=== PATIENT | male | born 1935 | race Caucasian/White ===

== ENCOUNTER 2016-09-18 16:14 | Emergency (ER) | payer MEDICARE ==
[~2016-09-18] VITALS: Ht 180.3 cm; Wt 118.8 kg
[2016-09-18] MEDS ORDERED: LIDOCAINE 2% 20 ML VIAL. IJ ONE (17:30)
[2016-09-18 17:39] VITALS: BP 162/77
--- NOTE | 2016-09-18 17:58 | RAD ---
Indication: Dizziness and fall with laceration above the right eye. Axial imaging through the brain was performed without contrast. One or more of the following individualized dose reduction techniques were utilized for this examination: 1. Automated exposure control 2. Adjustment of the mA and/or kV according to patient size 3. Use of iterative reconstruction technique The ventricles and sulci are appropriate for the patient's age. No sulcal effacement, midline shift or hemorrhage is detected. The cisterns are patent. The visualized paranasal sinuses are clear. There is soft tissue swelling in the right frontal scalp and right periorbital region. No fractures are seen. IMPRESSION: 1. Senescent changes. No acute intracranial process is identified. 2. Right frontal and right periorbital soft tissue swelling. No fractures are seen. Electronically signed by: Silviano Benoit MD (09/18/2016 5:55 PM) [facility]
--- NOTE | 2016-09-18 18:27 | PHYS DOC ---
Past Medical History Past Medical History: Diabetes-Type II Past Surgical History: Other Additional Past Surgical Histo: shoulder, knee, Alcohol Use: None Drug Use: None Adult General Chief Complaint Chief Complaint: fall HPI HPI Patient is a 80 year old male brought to the ED by his son after a fall in his garage. The patient looked up to hang up a shovel and he had a dizzy spell and fell onto the garage floor. He has a "knot on his head" and has an injury to his right ring finger. He denies other injury. He was able to get himself up and ambulate into the house after the fall. He has no complaints of pain at this time. He denies headache, denies vomiting, states his injured finger does not hurt. Patient's son is here with him and is supportive. Review of Systems Review of Systems Respiratory: Denies shortness of breath [] Cardiovascular: Denies chest pain GI: Denies nausea or vomiting Musculoskeletal: Denies back pain or joint pain , does no deformity to right finger Neurologic: Denies headache, focal weakness or sensory changes [] Current Medications Current Medications Current Medications Medications (Trade) Dose Ordered Sig/Brandie Start Time Stop Time Status Last Admin Dose Admin Lidocaine HCl 20 ml 1X ONCE 09/18/16 17:30 09/18/16 17:33 DC 09/18/16 17:39 20 ML Allergies Allergies Allergies Coded Allergies Type Severity Reaction Last Updated Verified No Known Drug Allergies 09/18/16 No Physical Exam Physical Exam Constitutional: Well developed, well nourished, no acute distress, non-toxic appearance. Alert, mentating normally HENT: Normocephalic, hematoma with small abrasion over the right eyebrow, no underlying bony tenderness or deformity, bilateral external ears normal, oropharynx moist, no oral exudates, nose normal. [] Eyes: conjunctiva normal, no discharge. [] Neck: Normal range of motion, no tenderness, supple, no stridor. Spine is entirely benign. Cardiovascular:Heart rate regular rhythm, no murmur [] Lungs & Thorax: Bilateral breath sounds clear to auscultation [] Skin: Warm, dry, no erythema, no rash. [] Back: No tenderness, no CVA tenderness. [] Extremities: Right upper extremity: The right fourth finger has a deformity consistent with fracture or dislocation. Remainder of right hand without deformity, nontender. Remainder of right upper extremity unremarkable. Left upper extremity and bilateral lower extremities are without tenderness or deformity. Full range of motion. Neurologic: Alert and oriented X 3, normal motor function, normal sensory function, no focal deficits noted. [] Current Patient Data Vital Signs Vital Signs Date Time Temp Pulse Resp B/P (MAP) Pulse Ox O2 Delivery O2 Flow Rate FiO2 09/18/16 17:39 81 18 162/77 (105) 96 Room Air EKG EKG [] Radiology/Procedures Radiology/Procedures CT Scan of the head read by the radiologist. No acute findings. [] Preprocedure three-view x-ray of the right ring finger read by me. There is a dislocation at the PIP joint. No fracture is evident. Postprocedure post reduction three-view x-ray of the right ring finger read by me. Successful reduction. There is a ramón of bone on the dorsal aspect. No large fracture noted. Procedure: Reduction of right ring finger PIP dislocation Digital block was placed with lidocaine 2% plain, good result With gentle traction and manipulation, the PIP joint dislocation was reduced easily. Patient tolerated procedure well. After reduction, the patient is able to extend his finger against resistance and is able to fully flex his finger, however, the swelling present prevents full examination of flexor and extensor tendon intactness. After postreduction x-ray was confirmed, the finger was cecil taped to the middle finger. Course & Med Decision Making Course & Med Decision Making Pertinent Labs and Imaging studies reviewed. (See chart for details) 80-year-old male with looking up and had a dizzy spell and fell. It was not a syncopal episode. He has a hematoma to his forehead/eyebrow area but CT scan is negative. He is not on any blood thinners. He had a dislocation of his right ring finger which was reduced and cecil taped. I emphasized to the patient and his son the importance of follow-up to reassess tendon. The patient's finger is too swollen to fully assess range of motion at this time. They understand that importance. See instructions for plan. [] Dragon Disclaimer Dragon Disclaimer This electronic medical record was generated, in whole or in part, using a voice recognition dictation system. Departure Departure Impression: Primary Impression: Fall from standing Additional Impressions: Closed head injury Dislocation of proximal interphalangeal joint of right ring finger Disposition: HOME, SELF-CARE Condition: IMPROVED Referrals: VIOLET MONZON Jr, MD (PCP) RENATE DAVIS MD Patient Instructions: Cecil Taping, Finger Dislocation, [id number], Head Injury, Adult, [id number] Additional Instructions: Your CT scan was normal, but since you had a head injury, have someone keep an eye on you for a couple of days. If you have a severe headache, not walking or acting right, return. Tape your finger to the next finger to use it as a splint. Put some gauze or cotton between to protect the skin. Follow-up in about one week with an technology specialist for recheck of your finger. It's very important to follow-up because a small ramón of bone came off and that may mean a tendon was damaged. As the anesthetic wears off, you may need to take some ibuprofen for pain. Also elevate to help with pain and throbbing. Problem Qualifiers NIRANJAN BURGESS MD Sep 18, 2016 18:27
--- NOTE | 2016-09-19 07:50 | RAD ---
Indication injury. Pain. AP oblique and lateral views of the right hand were obtained. There is dislocation at the PIP joint of the ring finger. Degenerative changes are seen at the wrist. There is chondrocalcinosis. IMPRESSION: Dislocation at the PIP joint of the ring finger
--- NOTE | 2016-09-19 07:53 | RAD ---
Indication post reduction. AP oblique and lateral views of the right hand were obtained at 1825 and are compared to an examination approximately one hour earlier. In the interval there has been reduction of previously identified dislocation at the PIP joint of the ring finger. There is likely a tiny avulsion fracture at the base of the middle phalanx of the finger on the extensor side.
--- NOTE | 2016-09-19 09:41 | EKG ---
[facility] [address] [place] [address] Test Date: 2016-09-18 Test Time: 16:32:07 Pat Name: LULU OLEARY Department: Room: Gender: M Instructional Material Director: : 1935 Requested By: NIRANJAN BURGESS Order Number: [id number] Reading MD: Tristian Wharton Measurements Intervals [place] Rate: 95 P: 25 SD: 168 QRS: -9 QRSD: 82 T: 0 QT: 316 QTc: 400 Interpretive Statements SINUS RHYTHM LEFTWARD AXIS QRS(T) CONTOUR ABNORMALITY CONSISTENT WITH INFERIOR INFARCT AGE UNDETERMINED RI6.01 Unconfirmed report No previous ECG available for comparison Electronically Signed On 09-23-2016 9:45:25 CDT by Tristian Wharton
== END 2016-09-18 18:50 | disposition home or self-care (01) ==
LOC: ER 16:14
DX: S63.284A Dislocation of proximal interphalangeal joint of right ring finger, initial encounter (principal); S09.90XA Unspecified injury of head, initial encounter; S01.111A Laceration without foreign body of right eyelid and periocular area, initial encounter; E11.9 Type 2 diabetes mellitus without complications; W18.39XA Other fall on same level, initial encounter; Y93.89 Activity, other specified; Y99.8 Other external cause status; Y92.89 Other specified places as the place of occurrence of the external cause
CPT/HCPCS: 26770; 70450; 73130; 73140; 93005; 99284-25; J2001

== ENCOUNTER → 2017-02-24 | Outpatient (CLI) | payer MEDICARE ==
[2017-02-24 10:01] LABS: ADD MAN DIFF? NO
[2017-02-24 10:10] LABS: BASO # 0.1 x10^3/uL (0.0-0.2); BASO % 1 % (0-3); EOS # 0.2 x10^3/uL (0.0-0.7); EOS % 3 % (0-3); HEMATOCRIT 49.7 % (39.0-53.0); LYMPH # 1.7 x10^3/uL (1.0-4.8); LYMPH % 20 % (24-48); MEAN CORPUSCULAR HEMOGLOBIN 33 pg (25-35); MEAN CORPUSCULAR HGB CONC 34 g/dL (31-37); MEAN CORPUSCULAR VOLUME 96 fL (79-100); MONO # 0.7 x10^3/uL (0.0-1.1); MONO % 9 % (0-9); NEUT # 5.7 x10^3uL (1.8-7.7); NEUT % 68 % (31-73); PLATELET COUNT 213 x10^3/uL (140-400); RED BLOOD COUNT 5.16 x10^6/uL (4.30-5.70); RED CELL DISTRIBUTION WIDTH 12.8 % (11.5-14.5); WHITE BLOOD COUNT 8.5 x10^3/uL (4.0-11.0)
[2017-02-24 10:20] LABS: PROTHROMBIN TIME PATIENT 12.1 SEC (11.7-14.0)
[2017-02-24 10:21] LABS: ALBUMIN 3.7 g/dL (3.4-5.0); ANION GAP 10 (6-14); BLOOD UREA NITROGEN 24 mg/dL (8-26); CALCIUM 8.8 mg/dL (8.5-10.1); CARBON DIOXIDE 27 mmol/L (21-32); CHLORIDE 104 mmol/L (98-107); CREATININE 1.2 mg/dL (0.7-1.3); GLUCOSE 142 mg/dL (70-99); PARTIAL THROMBOPLASTIN TIME 26 SEC (24-38); POTASSIUM 4.7 mmol/L (3.5-5.1); SODIUM 141 mmol/L (136-145)
[2017-02-24 11:13] LABS: SEDIMENTATION RATE 3 (0-15)
[2017-02-24 11:24] LABS: BILIRUBIN,URINE NEGATIVE (NEG); CLARITY,URINE CLEAR; COLOR,URINE YELLOW; GLUCOSE,URINE >=1000 mg/dL (NEG); NITRITE,URINE NEGATIVE (NEG); PH,URINE 5.5; PROTEIN,URINE NEGATIVE (NEG-TRACE); UROBILINOGEN,URINE 0.2 mg/dL (0.2 mg/dL)
[2017-02-24 11:37] LABS: BACTERIA,URINE FEW /HPF (0-FEW); HYALINE CASTS, URINE OCCASIONAL /HPF; RBC,URINE 0 /HPF (0-2); SQUAMOUS EPITHELIAL CELL,UR OCC /LPF
[2017-02-25 00:12] LABS: MRSA BY PCR Negative (Negative)
== END | disposition home or self-care (01) ==
LOC: SURGPAT 14:20
DX: Z01.818 Encounter for other preprocedural examination (principal); I10 Essential (primary) hypertension; K44.9 Diaphragmatic hernia without obstruction or gangrene; Z96.652 Presence of left artificial knee joint
CPT/HCPCS: 36415; 71046; 80048; 81001; 82040; 82306; 83036; 85025; 85610; 85651; 85730; 87641; 93005

== ENCOUNTER 2017-03-18 05:52 | Inpatient (IN) | payer MEDICARE ==
[2017-03-18] MEDS ORDERED: CELECOXIB 200 MG CAPSULE. PO (06:00)
[2017-03-18] MEDS: ACETAMINOPHEN 500 MG TABLET PO (06:35)
[2017-03-18] MEDS: IV RINGERS,LACTATED 1000ML 1,000 ML IV ×2 (06:35→10:03)
[2017-03-18 06:59] LABS: POC GLUCOSE 186 mg/dL (70-99)
[2017-03-18] MEDS ORDERED: fentaNYL PF VIAL 100 MCG/2 ML VIAL IV ×4 (07:00→10:00)
[2017-03-18] MEDS ORDERED: LIDOCAINE 1% PF 2 ML VIAL. ID (07:00)
[2017-03-18] MEDS ORDERED: PROCHLORPERAZINE 10 MG/2 ML VIAL. IV ×2 (07:00→10:00)
[2017-03-18] MEDS ORDERED: MORPHINE SULFATE 2 MG/ML DISP.SYRIN. IV ×2 (07:00→10:00)
[2017-03-18] MEDS ORDERED: HYDROmorphone 2 MG/ML VIAL IV (07:00)
[2017-03-18] MEDS ORDERED: ONDANSETRON PF 4 MG/2 ML VIAL. IV (07:00)
[2017-03-18] MEDS ORDERED: fentaNYL PF VIAL 100 MCG/2 ML VIAL (07:18)
[2017-03-18] MEDS ORDERED: DEXAMETHASONE SOD PHOS 20 MG/5 ML VIAL. (07:18)
[2017-03-18] MEDS ORDERED: ONDANSETRON PF 4 MG/2 ML VIAL. (07:18)
[2017-03-18] MEDS ORDERED: PROPOFOL 20 ML IV (07:18)
[2017-03-18] MEDS ORDERED: LIDOCAINE 2% PF Vial for OR 5 ML VIAL. (07:18)
[2017-03-18] MEDS ORDERED: SEVOFLURANE > 120 MINUTES. IH (07:18)
[2017-03-18] MEDS ORDERED: PHENYLEPHRINE in 0.9% NACL PF 1 MG/10 ML SYRINGE. IV (07:28)
[2017-03-18] MEDS: TRANEXAMIC ACID 1,000 MG in IV NS 50ML -- 1ST BAG INJ (07:40)
[2017-03-18] MEDS ORDERED: KETOROLAC 30 MG/ML INJ FOR OR. INJ (07:53)
[2017-03-18] MEDS: TOBRAMYCIN POWDER 1.2 GM VIAL. (08:08)
[2017-03-18] MEDS: MORPHINE SULFATE 5 MG, KETOROLAC 30 MG, ROPIVacaine 0.5% PF 60 ML, EPINEPHrine 0.5 MG i... INT ART (08:08)
[2017-03-18] MEDS: VANCOMYCIN 1 GM VIAL. (08:08)
[2017-03-18] MEDS ORDERED: TOBRAMYCIN POWDER 1.2 GM VIAL. ×2 (08:36→10:06)
[2017-03-18] MEDS ORDERED: VANCOMYCIN 1 GM VIAL. ×2 (08:36→10:06)
[2017-03-18] MEDS: TRANEXAMIC ACID 1,000 MG in IV NS 50ML -- 2ND BAG INJ (09:04)
[2017-03-18] MEDS ORDERED: METOCLOPRAMIDE HCL 10 MG/2 ML VIAL. IV (10:00)
[2017-03-18] MEDS ORDERED: PROCHLORPERAZINE 5 MG TABLET. PO (10:00)
[2017-03-18] MEDS ORDERED: traMADol 50 MG TABLET PO ×2 (10:00)
[2017-03-18] MEDS ORDERED: DEXTROSE 50% 25 GM / 50ML DISP.SYRIN. IV ×2 (10:00→16:45)
[2017-03-18] MEDS ORDERED: oxyCODONE/APAP 7.5/325 1 TAB TABLET PO (10:00)
[2017-03-18] MEDS ORDERED: ACETAMINOPHEN 325 MG TABLET. PO (10:00)
[2017-03-18] MEDS ORDERED: CALCIUM CARBONATE 500 MG TAB.CHEW PO (10:00)
[2017-03-18] MEDS ORDERED: MORPHINE SULFATE 4 MG/ML DISP.SYRIN. IV ×2 (10:00)
[2017-03-18] MEDS ORDERED: MORPHINE SULFATE 10 MG/ML VIAL. IV (10:00)
[2017-03-18] MEDS ORDERED: diphenhydrAMINE 50 MG/ML VIAL IV (10:00)
[2017-03-18] MEDS ORDERED: oxyCODONE/APAP 5/325 1 TAB TABLET PO (10:00)
[2017-03-18 10:01] LABS: POC GLUCOSE 211 mg/dL (70-99)
[2017-03-18] MEDS ORDERED: INSULIN ASPART 100 UNIT/ML 10ML VIAL. SQ (10:15)
[2017-03-18] MEDS: INSULIN ASPART 100 UNIT/ML 10ML VIAL. SQ (10:16)
[2017-03-18] MEDS: IV DEXTROSE 5 %-0.45 % NACL 1,000 ML IV (12:00)
[2017-03-18] MEDS: glipiZIDE 5 MG TABLET PO ×2 (12:37→16:22)
[2017-03-18] MEDS: ceFAZolin SODIUM 3 GM in IV DEXTROSE 5% 100 ML IV ×2 (13:24→20:51)
[2017-03-18 16:15] LABS: POC GLUCOSE 339 mg/dL (70-99)
[2017-03-18] MEDS: metFORMIN 500 MG TABLET PO (16:22)
[2017-03-18] MEDS: FERROUS SULFATE 325 MG TABLET. PO (16:22)
[2017-03-18] MEDS: HYDROcodone/APAP 7.5/325MG 1 TAB TABLET PO (16:25)
[2017-03-18] MEDS: KETOROLAC 30 MG, BUPIVACAINE MPF 0.25% 20 ML, EPINEPHrine 0.5 MG in TOTAL VOLUME SYRING... INT ART (17:13)
[2017-03-18] MEDS: INSULIN ASPART 300 UNITS/3 ML INSULN.PEN SQ (17:25)
[2017-03-18] MEDS: CELECOXIB 200 MG CAPSULE. PO (20:51)
[2017-03-18] MEDS: ASPIRIN ENTERIC COATED 325 MG TABLET.DR. PO (20:51)
[2017-03-18] MEDS: ATORVASTATIN CALCIUM 10 MG TABLET. PO (20:51)
[2017-03-18 21:12] LABS: POC GLUCOSE 259 mg/dL (70-99)
[2017-03-19] MEDS: ceFAZolin SODIUM 3 GM in IV DEXTROSE 5% 100 ML IV (01:21)
[2017-03-19] MEDS: HYDROcodone/APAP 10/325 1 TAB TABLET PO (03:04)
[2017-03-19 05:16] LABS: HEMATOCRIT 40.2 % (39.0-53.0); HEMOGLOBIN 13.7 g/dL (13.0-17.5); MEAN CORPUSCULAR HEMOGLOBIN 32 pg (25-35); MEAN CORPUSCULAR HGB CONC 34 g/dL (31-37); MEAN CORPUSCULAR VOLUME 95 fL (79-100); PLATELET COUNT 208 x10^3/uL (140-400); RED BLOOD COUNT 4.22 x10^6/uL (4.30-5.70); RED CELL DISTRIBUTION WIDTH 13.2 % (11.5-14.5); WHITE BLOOD COUNT 16.3 x10^3/uL (4.0-11.0)
[2017-03-19] MEDS: KETOROLAC 30 MG, BUPIVACAINE MPF 0.25% 20 ML, EPINEPHrine 0.5 MG in TOTAL VOLUME SYRING... INT ART (05:28)
[2017-03-19] MEDS ORDERED: MAGNESIUM HYDROXIDE 2,400 MG/30 ML ORAL.SUSP. PO (06:00)
[2017-03-19 06:40] LABS: POC GLUCOSE 213 mg/dL (70-99)
[2017-03-19] MEDS: CHOLECALCIFEROL (VITAMIN D3) 5,000 UNIT CAPSULE PO (09:00)
[2017-03-19] MEDS: metFORMIN 500 MG TABLET PO ×2 (09:00→16:54)
[2017-03-19] MEDS: FERROUS SULFATE 325 MG TABLET. PO ×2 (09:01→16:54)
[2017-03-19] MEDS: CELECOXIB 200 MG CAPSULE. PO ×2 (09:01→20:46)
[2017-03-19] MEDS: glipiZIDE 5 MG TABLET PO ×3 (09:01→16:54)
[2017-03-19] MEDS: HYDROcodone/APAP 7.5/325MG 1 TAB TABLET PO ×4 (09:01→20:46)
[2017-03-19] MEDS: ASPIRIN ENTERIC COATED 325 MG TABLET.DR. PO ×2 (09:01→20:46)
[2017-03-19] MEDS: SENNOSIDES/DOCUSATE 8.6/50MG TABLET. PO (09:01)
[2017-03-19] MEDS: MULTIVITAMIN with MINERAL TABLET. PO (09:01)
[2017-03-19] MEDS: INSULIN ASPART 300 UNITS/3 ML INSULN.PEN SQ ×3 (09:09→16:58)
[2017-03-19 11:40] LABS: POC GLUCOSE 154 mg/dL (70-99)
[2017-03-19] MEDS ORDERED: BISACODYL 10 MG SUPP.RECT. PR (16:00)
[2017-03-19 16:44] LABS: POC GLUCOSE 157 mg/dL (70-99)
[2017-03-19 20:43] LABS: POC GLUCOSE 192 mg/dL (70-99)
[2017-03-19] MEDS: ATORVASTATIN CALCIUM 10 MG TABLET. PO (20:46)
[2017-03-19] MEDS: 0.9 % SODIUM CHLORIDE 10 ML DISP.SYRIN. IV (20:46)
[2017-03-19] MEDS: ZOLPIDEM 5 MG TABLET. PO (22:06)
[2017-03-20 05:49] LABS: HEMATOCRIT 35.5 % (39.0-53.0); HEMOGLOBIN 12.2 g/dL (13.0-17.5); MEAN CORPUSCULAR HGB CONC 34 g/dL (31-37)
[2017-03-20 06:45] LABS: POC GLUCOSE 98 mg/dL (70-99)
[2017-03-20] MEDS: INSULIN ASPART 300 UNITS/3 ML INSULN.PEN SQ ×3 (08:00→16:46)
[2017-03-20] MEDS: MULTIVITAMIN with MINERAL TABLET. PO (08:40)
[2017-03-20] MEDS: SENNOSIDES/DOCUSATE 8.6/50MG TABLET. PO (08:40)
[2017-03-20] MEDS: ASPIRIN ENTERIC COATED 325 MG TABLET.DR. PO ×2 (08:40→20:38)
[2017-03-20] MEDS: FERROUS SULFATE 325 MG TABLET. PO ×2 (08:40→16:54)
[2017-03-20] MEDS: CELECOXIB 200 MG CAPSULE. PO ×2 (08:40→20:37)
[2017-03-20] MEDS: metFORMIN 500 MG TABLET PO ×2 (08:40→16:53)
[2017-03-20] MEDS: CHOLECALCIFEROL (VITAMIN D3) 5,000 UNIT CAPSULE PO (08:40)
[2017-03-20] MEDS: glipiZIDE 5 MG TABLET PO ×3 (08:40→16:54)
[2017-03-20] MEDS: HYDROcodone/APAP 7.5/325MG 1 TAB TABLET PO ×3 (09:32→20:43)
[2017-03-20 11:20] LABS: POC GLUCOSE 121 mg/dL (70-99)
[2017-03-20 16:45] LABS: POC GLUCOSE 140 mg/dL (70-99)
[2017-03-20 20:33] LABS: POC GLUCOSE 173 mg/dL (70-99)
[2017-03-20] MEDS: ATORVASTATIN CALCIUM 10 MG TABLET. PO (20:37)
[2017-03-20] MEDS: ZOLPIDEM 5 MG TABLET. PO (20:43)
[2017-03-21] MEDS: HYDROcodone/APAP 7.5/325MG 1 TAB TABLET PO ×2 (05:50→11:48)
[2017-03-21 06:19] LABS: POC GLUCOSE 142 mg/dL (70-99)
[2017-03-21 07:49] LABS: HEMATOCRIT 35.1 % (39.0-53.0); HEMOGLOBIN 12.1 g/dL (13.0-17.5); MEAN CORPUSCULAR HGB CONC 34 g/dL (31-37)
[2017-03-21] MEDS: MULTIVITAMIN with MINERAL TABLET. PO (07:50)
[2017-03-21] MEDS: glipiZIDE 5 MG TABLET PO ×2 (07:50→11:46)
[2017-03-21] MEDS: SENNOSIDES/DOCUSATE 8.6/50MG TABLET. PO (07:50)
[2017-03-21] MEDS: ASPIRIN ENTERIC COATED 325 MG TABLET.DR. PO (07:50)
[2017-03-21] MEDS: CELECOXIB 200 MG CAPSULE. PO (07:50)
[2017-03-21] MEDS: CHOLECALCIFEROL (VITAMIN D3) 5,000 UNIT CAPSULE PO (07:50)
[2017-03-21] MEDS: FERROUS SULFATE 325 MG TABLET. PO (07:50)
[2017-03-21] MEDS: metFORMIN 500 MG TABLET PO (07:50)
[2017-03-21] MEDS: INSULIN ASPART 300 UNITS/3 ML INSULN.PEN SQ ×2 (07:51→11:47)
[2017-03-21 11:37] LABS: POC GLUCOSE 122 mg/dL (70-99)
== END 2017-03-21 14:54 | disposition home or self-care (01) | DRG 470 ==
LOC: OPSVCIP 05:52 → 4 SOUTHEST 11:02
PROVIDERS: Orthopaedic Surgery
PROC: 0SRD0J9 Replacement of Left Knee Joint with Synthetic Substitute, Cemented, Open Approach (ICD-10-PCS; principal; 2017-03-18 07:10)
DX: M17.12 Unilateral primary osteoarthritis, left knee (principal); E11.9 Type 2 diabetes mellitus without complications; M17.11 Unilateral primary osteoarthritis, right knee
CPT/HCPCS: 36415; 73560; 82962; 85014; 85018; 85027; 86850; 86870; 86900; 86901; 88305; 88311; 97116-GP; 97150-GP; 97162-GP; 97166-GO; 97530-GP; 97535-GO; C1713; J0171; J0690; J1100; J1815; J1885; J2270; J2370; J2405; J2704; J2795; J3010; J3260; J3370; J3490; J7030; J7120

== ENCOUNTER → 2017-03-31 | Outpatient (CLI) | payer MEDICARE | END | disposition home or self-care (01) | LOC: LAB 10:48 | DX: Z47.1 Aftercare following joint replacement surgery (principal); Z96.652 Presence of left artificial knee joint | CPT/HCPCS: 87015; 87071; 87075; 87102; 87116; 87205 ==

== ENCOUNTER 2017-04-03 09:48 | Inpatient (IN) | payer MEDICARE ==
[2017-04-03 11:52] LABS: ADD MAN DIFF? NO
[2017-04-03 11:58] LABS: BASO # 0.1 x10^3/uL (0.0-0.2); BASO % 1 % (0-3); EOS # 0.1 x10^3/uL (0.0-0.7); EOS % 1 % (0-3); HEMATOCRIT 39.9 % (39.0-53.0); HEMOGLOBIN 13.8 g/dL (13.0-17.5); LYMPH # 1.2 x10^3/uL (1.0-4.8); LYMPH % 12 % (24-48); MEAN CORPUSCULAR HEMOGLOBIN 33 pg (25-35); MEAN CORPUSCULAR HGB CONC 35 g/dL (31-37); MEAN CORPUSCULAR VOLUME 95 fL (79-100); MONO # 0.8 x10^3/uL (0.0-1.1); MONO % 8 % (0-9); NEUT # 8.1 x10^3uL (1.8-7.7); NEUT % 78 % (31-73); PLATELET COUNT 361 x10^3/uL (140-400); RED BLOOD COUNT 4.22 x10^6/uL (4.30-5.70); RED CELL DISTRIBUTION WIDTH 13.4 % (11.5-14.5); WHITE BLOOD COUNT 10.4 x10^3/uL (4.0-11.0)
[2017-04-03] MEDS: IV NORMAL SALINE 1000ML BAG 1,000 ML IV ×4 (12:00→20:00)
[2017-04-03 12:16] LABS: ALBUMIN/GLOBULIN RATIO 0.9 (1.0-1.7); ALK PHOS 132 U/L (46-116); ALT (SGPT) 22 U/L (16-63); ANION GAP 9 (6-14); AST (SGOT) 15 U/L (15-37); BLOOD UREA NITROGEN 23 mg/dL (8-26); BUN/CREATININE RATIO 15 (6-20); CALCIUM 8.9 mg/dL (8.5-10.1); CARBON DIOXIDE 27 mmol/L (21-32); CHLORIDE 100 mmol/L (98-107); CREATININE 1.5 mg/dL (0.7-1.3); GFR 44.8; GLUCOSE 204 mg/dL (70-99); POTASSIUM 4.5 mmol/L (3.5-5.1); SODIUM 136 mmol/L (136-145); TOTAL BILIRUBIN 0.7 mg/dL (0.2-1.0); TOTAL PROTEIN 6.5 g/dL (6.4-8.2)
[2017-04-03] MEDS: glipiZIDE 5 MG TABLET PO ×4 (12:30→17:50)
[2017-04-03] MEDS ORDERED: DEXTROSE 50% 25 GM / 50ML DISP.SYRIN. IV ×2 (12:30)
[2017-04-03 13:07] LABS: SEDIMENTATION RATE 28 (0-15)
[2017-04-03 13:12] LABS: POC GLUCOSE 149 mg/dL (70-99)
[2017-04-03 13:18] LABS: INFLUENZA A PATIENT NEGATIVE (NEGATIVE); INFLUENZA B PATIENT NEGATIVE (NEGATIVE); OBC FLU VALID
[2017-04-03 15:33] LABS: BILIRUBIN,URINE NEGATIVE (NEG); CLARITY,URINE CLEAR; COLOR,URINE YELLOW; GLUCOSE,URINE >=1000 mg/dL (NEG); NITRITE,URINE NEGATIVE (NEG); PH,URINE 6.5; PROTEIN,URINE NEGATIVE (NEG-TRACE); UROBILINOGEN,URINE 0.2 mg/dL (0.2 mg/dL)
[2017-04-03 15:57] LABS: BACTERIA,URINE 0 /HPF (0-FEW); RBC,URINE 0 /HPF (0-2); WBC,URINE 0 /HPF (0-4)
[2017-04-03] MEDS: oxyCODONE/APAP 5/325 1 TAB TABLET PO ×4 (16:19→21:29)
[2017-04-03] MEDS: SENNOSIDES/DOCUSATE 8.6/50MG TABLET. PO ×2 (16:21)
[2017-04-03] MEDS: MAGNESIUM CITRATE 296 ML SOLUTION. PO ×2 (16:21)
[2017-04-03] MEDS: INSULIN ASPART 300 UNITS/3 ML INSULN.PEN SQ ×2 (17:00)
[2017-04-03] MEDS: metFORMIN 500 MG TABLET PO ×2 (17:50)
[2017-04-03] MEDS: FERROUS SULFATE 325 MG TABLET. PO ×2 (17:50)
[2017-04-03] MEDS: DOCUSATE SODIUM 100 MG CAPSULE. PO ×2 (17:54)
[2017-04-03 21:07] LABS: POC GLUCOSE 166 mg/dL (70-99)
[2017-04-03] MEDS: ASPIRIN 325 MG TABLET PO ×2 (21:28)
[2017-04-03] MEDS: ATORVASTATIN CALCIUM 10 MG TABLET. PO ×2 (21:28)
[2017-04-03] MEDS: ZOLPIDEM 5 MG TABLET. PO ×2 (21:32)
[2017-04-04] MEDS: oxyCODONE/APAP 5/325 1 TAB TABLET PO ×4 (02:33→08:11)
[2017-04-04] MEDS: IV NORMAL SALINE 1000ML BAG 1,000 ML IV ×6 (04:00→20:00)
[2017-04-04 05:55] LABS: ADD MAN DIFF? NO
[2017-04-04 05:57] LABS: BASO # 0.1 x10^3/uL (0.0-0.2); BASO % 1 % (0-3); EOS # 0.2 x10^3/uL (0.0-0.7); EOS % 2 % (0-3); HEMATOCRIT 39.5 % (39.0-53.0); HEMOGLOBIN 13.5 g/dL (13.0-17.5); LYMPH # 1.4 x10^3/uL (1.0-4.8); LYMPH % 15 % (24-48); MEAN CORPUSCULAR HEMOGLOBIN 33 pg (25-35); MEAN CORPUSCULAR HGB CONC 34 g/dL (31-37); MEAN CORPUSCULAR VOLUME 95 fL (79-100); MONO # 0.9 x10^3/uL (0.0-1.1); MONO % 10 % (0-9); NEUT # 6.8 x10^3uL (1.8-7.7); NEUT % 73 % (31-73); PLATELET COUNT 357 x10^3/uL (140-400); RED BLOOD COUNT 4.17 x10^6/uL (4.30-5.70); RED CELL DISTRIBUTION WIDTH 13.3 % (11.5-14.5); WHITE BLOOD COUNT 9.3 x10^3/uL (4.0-11.0)
[2017-04-04 06:22] LABS: ALBUMIN 2.9 g/dL (3.4-5.0); ALBUMIN/GLOBULIN RATIO 0.9 (1.0-1.7); ALK PHOS 108 U/L (46-116); ALT (SGPT) 20 U/L (16-63); ANION GAP 5 (6-14); AST (SGOT) 14 U/L (15-37); BLOOD UREA NITROGEN 21 mg/dL (8-26); BUN/CREATININE RATIO 15 (6-20); CALCIUM 8.5 mg/dL (8.5-10.1); CARBON DIOXIDE 29 mmol/L (21-32); CHLORIDE 103 mmol/L (98-107); CREATININE 1.4 mg/dL (0.7-1.3); GFR 48.5; GLUCOSE 120 mg/dL (70-99); POTASSIUM 4.4 mmol/L (3.5-5.1); SODIUM 137 mmol/L (136-145); TOTAL BILIRUBIN 0.9 mg/dL (0.2-1.0)
[2017-04-04] MEDS: INSULIN ASPART 300 UNITS/3 ML INSULN.PEN SQ ×6 (08:00→17:00)
[2017-04-04 08:02] LABS: POC GLUCOSE 132 mg/dL (70-99)
[2017-04-04] MEDS: glipiZIDE 5 MG TABLET PO ×6 (08:11→17:37)
[2017-04-04] MEDS: DOCUSATE SODIUM 100 MG CAPSULE. PO ×2 (08:11)
[2017-04-04] MEDS: SENNOSIDES/DOCUSATE 8.6/50MG TABLET. PO ×2 (08:11)
[2017-04-04] MEDS: ASPIRIN 325 MG TABLET PO ×4 (08:11→22:32)
[2017-04-04] MEDS: CHOLECALCIFEROL (VITAMIN D3) 5,000 UNIT CAPSULE PO ×2 (08:11)
[2017-04-04] MEDS: FERROUS SULFATE 325 MG TABLET. PO ×4 (08:12→17:38)
[2017-04-04] MEDS: metFORMIN 500 MG TABLET PO ×4 (08:12→17:37)
[2017-04-04 11:34] LABS: POC GLUCOSE 172 mg/dL (70-99)
[2017-04-04] MEDS ORDERED: POLYETHYLENE GLYCOL 3350 17 GM PACKET. PO ×2 (12:15)
[2017-04-04] MEDS: POLYETHYLENE GLYCOL 3350 17 GM PACKET. PO ×2 (12:39)
[2017-04-04] MEDS: IBUPROFEN 400 MG TABLET. PO ×2 (12:41)
[2017-04-04 16:25] LABS: POC GLUCOSE 84 mg/dL (70-99)
[2017-04-04 21:09] LABS: POC GLUCOSE 115 mg/dL (70-99)
[2017-04-04] MEDS: SODIUM PHOSPHATES 19/7GM 133 ML ENEMA. PR ×2 (22:28)
[2017-04-04] MEDS: diphenhydrAMINE HCL 25 MG CAPSULE PO ×2 (22:32)
[2017-04-04] MEDS: ATORVASTATIN CALCIUM 10 MG TABLET. PO ×2 (22:32)
[2017-04-04] MEDS: ZOLPIDEM 5 MG TABLET. PO ×2 (22:32)
[2017-04-05] MEDS: IV NORMAL SALINE 1000ML BAG 1,000 ML IV ×6 (04:00→20:00)
[2017-04-05 08:15] LABS: POC GLUCOSE 198 mg/dL (70-99)
[2017-04-05] MEDS: ASPIRIN 325 MG TABLET PO ×4 (08:48→21:28)
[2017-04-05] MEDS: CHOLECALCIFEROL (VITAMIN D3) 5,000 UNIT CAPSULE PO ×2 (08:48)
[2017-04-05] MEDS: FERROUS SULFATE 325 MG TABLET. PO ×4 (08:49→18:21)
[2017-04-05] MEDS: glipiZIDE 5 MG TABLET PO ×6 (08:49→18:21)
[2017-04-05] MEDS: metFORMIN 500 MG TABLET PO ×4 (08:49→18:21)
[2017-04-05] MEDS: DOCUSATE SODIUM 100 MG CAPSULE. PO ×2 (08:49)
[2017-04-05] MEDS: INSULIN ASPART 300 UNITS/3 ML INSULN.PEN SQ ×8 (08:57→22:03)
[2017-04-05 11:55] LABS: POC GLUCOSE 135 mg/dL (70-99)
[2017-04-05 17:17] LABS: POC GLUCOSE 208 mg/dL (70-99)
[2017-04-05] MEDS: IBUPROFEN 400 MG TABLET. PO ×2 (18:21)
[2017-04-05 20:21] LABS: POC GLUCOSE 241 mg/dL (70-99)
[2017-04-05] MEDS: ZOLPIDEM 5 MG TABLET. PO ×2 (21:28)
[2017-04-05] MEDS: ATORVASTATIN CALCIUM 10 MG TABLET. PO ×2 (21:28)
[2017-04-05] MEDS: ACETAMINOPHEN 325 MG TABLET. PO ×2 (21:28)
[2017-04-05 23:16] LABS: POC GLUCOSE 121 mg/dL (70-99)
[2017-04-06] MEDS: IBUPROFEN 400 MG TABLET. PO ×4 (02:21→09:58)
[2017-04-06 08:00] LABS: POC GLUCOSE 123 mg/dL (70-99)
[2017-04-06] MEDS: INSULIN ASPART 300 UNITS/3 ML INSULN.PEN SQ ×6 (08:00→17:00)
[2017-04-06] MEDS: CHOLECALCIFEROL (VITAMIN D3) 5,000 UNIT CAPSULE PO ×2 (09:53)
[2017-04-06] MEDS: metFORMIN 500 MG TABLET PO ×4 (09:53→17:50)
[2017-04-06] MEDS: ASPIRIN 325 MG TABLET PO ×4 (09:53→21:19)
[2017-04-06] MEDS: glipiZIDE 5 MG TABLET PO ×6 (09:54→17:51)
[2017-04-06] MEDS: FERROUS SULFATE 325 MG TABLET. PO ×4 (09:54→17:51)
[2017-04-06] MEDS: DOCUSATE SODIUM 100 MG CAPSULE. PO ×2 (09:54)
[2017-04-06 11:07] LABS: POC GLUCOSE 196 mg/dL (70-99)
[2017-04-06 15:21] LABS: POC GLUCOSE 136 mg/dL (70-99)
[2017-04-06] MEDS: amLODIPine BESYLATE 5 MG TABLET PO ×2 (17:51)
[2017-04-06] MEDS: MAGNESIUM CITRATE 296 ML SOLUTION. PO ×2 (17:54)
[2017-04-06 20:31] LABS: POC GLUCOSE 118 mg/dL (70-99)
[2017-04-06] MEDS: ACETAMINOPHEN 325 MG TABLET. PO ×2 (21:19)
[2017-04-06] MEDS: ATORVASTATIN CALCIUM 10 MG TABLET. PO ×2 (21:19)
[2017-04-06] MEDS: ZOLPIDEM 5 MG TABLET. PO ×2 (21:19)
[2017-04-07 07:57] LABS: POC GLUCOSE 127 mg/dL (70-99)
[2017-04-07] MEDS: INSULIN ASPART 300 UNITS/3 ML INSULN.PEN SQ ×4 (08:00→12:00)
[2017-04-07] MEDS: CHOLECALCIFEROL (VITAMIN D3) 5,000 UNIT CAPSULE PO ×2 (08:37)
[2017-04-07] MEDS: glipiZIDE 5 MG TABLET PO ×4 (08:37→12:03)
[2017-04-07] MEDS: amLODIPine BESYLATE 5 MG TABLET PO ×2 (08:38)
[2017-04-07] MEDS: FERROUS SULFATE 325 MG TABLET. PO ×2 (08:38)
[2017-04-07] MEDS: ASPIRIN 325 MG TABLET PO ×2 (08:38)
[2017-04-07] MEDS: metFORMIN 500 MG TABLET PO ×2 (08:38)
[2017-04-07] MEDS: DOCUSATE SODIUM 100 MG CAPSULE. PO ×2 (08:39)
[2017-04-07] MEDS: ACETAMINOPHEN 325 MG TABLET. PO ×2 (08:41)
[2017-04-07 16:45] LABS: POC GLUCOSE 148 mg/dL (70-99)
== END 2017-04-07 16:32 | disposition home or self-care (01) | DRG 866 ==
LOC: 4 NORTH 09:48
PROC: 5A09357 Assistance with Respiratory Ventilation, Less than 24 Consecutive Hours, Continuous Positive Airway Pressure (ICD-10-PCS; principal; 2017-04-03)
DX: B34.9 Viral infection, unspecified (principal); E11.22 Type 2 diabetes mellitus with diabetic chronic kidney disease; N18.3 Chronic kidney disease, stage 3 (moderate); E44.1 Mild protein-calorie malnutrition; M79.1 Myalgia; R51 Headache; I12.9 Hypertensive chronic kidney disease with stage 1 through stage 4 chronic kidney disease, or unspecified chronic kidney disease; Z68.37 Body mass index [BMI] 37.0-37.9, adult; E66.9 Obesity, unspecified; Z96.652 Presence of left artificial knee joint; Z83.3 Family history of diabetes mellitus
CPT/HCPCS: 36415; 71046; 74018; 80053; 81001; 82962; 85025; 85651; 86140; 87071; 87075; 87102; 87116; 87205; 87804; 87804-59; 97161-GP; J1815; Q0163

== ENCOUNTER → 2018-02-23 | Outpatient (CLI) | payer MEDICARE ==
[2017-04-07 15:00] VITALS: BP 148/73
[~2018-02-23] MED LIST: ASPI325T8 PO; ATOR10TA60 PO; CHOL500016 PO; FERR325T14 PO; GLIP5TAB10 PO; HYDR-2765 PO; LEVO500T8 PO; LOSA25TA PO; METF500T16 PO; NAPR-514 PO
--- NOTE | 2018-02-23 13:00 | EKG ---
[facility] [address] [place] [address] Test Date: 2018-02-23 Test Time: 12:57:17 Pat Name: LULU OLEARY Department: Room: Gender: M First Sampler: : 1935 Requested By: DAYANA MEJIA Order Number: [id number] Reading MD: Lamont Jacobson MD Measurements Intervals [place] Rate: 87 P: 32 PA: 160 QRS: -9 QRSD: 84 T: 8 QT: 300 QTc: 361 Interpretive Statements SINUS RHYTHM PRIOR INFERIOR INFARCT Electronically Signed On 02-24-2018 12:03:01 [employer]PLEX [employer]OURCES MANAGER by Lamont Jacobson MD
[2018-02-23 13:05] LABS: BASO # 0.1 x10^3/uL (0.0-0.2); BASO % 1 % (0-3); EOS # 0.2 x10^3/uL (0.0-0.7); EOS % 2 % (0-3); HEMATOCRIT 48.1 % (39.0-53.0); HEMOGLOBIN 16.6 g/dL (13.0-17.5); LYMPH # 1.7 x10^3/uL (1.0-4.8); LYMPH % 15 % (24-48); MEAN CORPUSCULAR HEMOGLOBIN 34 pg (25-35); MEAN CORPUSCULAR HGB CONC 35 g/dL (31-37); MEAN CORPUSCULAR VOLUME 98 fL (79-100); MONO # 0.7 x10^3/uL (0.0-1.1); MONO % 6 % (0-9); NEUT # 9.2 x10^3uL (1.8-7.7); NEUT % 78 % (31-73); PLATELET COUNT 269 x10^3/uL (140-400); RED BLOOD COUNT 4.91 x10^6/uL (4.30-5.70); RED CELL DISTRIBUTION WIDTH 13.1 % (11.5-14.5); WHITE BLOOD COUNT 11.8 x10^3/uL (4.0-11.0)
[2018-02-23 13:11] LABS: CALCIUM 8.8 mg/dL (8.5-10.1); CREATININE 1.4 mg/dL (0.7-1.3); GFR 48.4; POTASSIUM 4.6 mmol/L (3.5-5.1)
[2018-02-23 13:13] LABS: PROTHROMBIN TIME PATIENT 12.4 SEC (11.7-14.0)
[2018-02-23 13:28] LABS: BILIRUBIN,URINE NEGATIVE (NEG); CLARITY,URINE CLEAR; COLOR,URINE YELLOW; NITRITE,URINE NEGATIVE (NEG); PH,URINE 5.5; PROTEIN,URINE NEGATIVE (NEG-TRACE); UROBILINOGEN,URINE 0.2 mg/dL (0.2 mg/dL)
[2018-02-23 13:35] LABS: SQUAMOUS EPITHELIAL CELL,UR OCC /LPF
[2018-02-23 13:36] LABS: BACTERIA,URINE FEW /HPF (0-FEW); RBC,URINE 0 /HPF (0-2)
--- NOTE | 2018-03-13 09:55 | NUR ---
FAXED PRE - OP TEST REPORTS TO 'S OFFICE 02/24/[address] AT [address]ANNA CHAHAL -PCP 02/24/2018 AT 1016 AND RECEIVED TRANSMITTAL CONFIRMATIONS IN BOTH OFFICES. RECEIVED 'S MEDICAL CLEARANCE 03/12/2018 AND FAXED TO 'S OFFICE 03/13/2018 AT 7575.
== END | disposition home or self-care (01) ==
LOC: SURGPAT 12:09
PROVIDERS: ATTEND Orthopaedic Surgery
DX: Z01.818 Encounter for other preprocedural examination (principal); M17.11 Unilateral primary osteoarthritis, right knee
CPT/HCPCS: 36415; 80048; 81001; 82040; 82306; 83036; 85025; 85610; 85651; 85730; 87641; 93005

== ENCOUNTER 2018-04-15 19:03 | Inpatient (IN) | payer MEDICARE ==
[~2018-04-15] VITALS: Ht 180.3 cm; Wt 122.5 kg
[2018-04-15] MEDS ORDERED: MORPHINE SULFATE 4 MG/ML VIAL. IV ONE (20:00)
[2018-04-15] MEDS ORDERED: ONDANSETRON PF 4 MG/2 ML VIAL. IV ONE (20:00)
[2018-04-15] MEDS ORDERED: FAMOTIDINE 20 MG/2 ML VIAL IVP ONE (20:00)
[2018-04-15] MEDS ORDERED: IV NORMAL SALINE 1000ML BAG 1,000 ML IV ONE ×2 (20:00→23:30)
--- NOTE | 2018-04-15 20:15 | PHYS DOC ---
Past Medical History Past Medical History: Diabetes-Type II (SHRADDHA DAVIS APRN) Past Surgical History: Knee Replacement, Other Additional Past Surgical Histo: shoulder, knee, (SHRADDHA DAVIS APRN) Alcohol Use: None Drug Use: None (SHRADDHA DAVIS APRN) Adult General Chief Complaint Chief Complaint: NAUSEA/VOMITING/DIARRHA HPI HPI Patient is a 82 year old female with history of diabetes type 2 who presents to the ED today complaining of nausea, vomiting, diarrhea, symptoms began yesterday at 4 PM. Patient denies any hematemesis or melena. He states his blood glucose was 120 beats morning. Denies any abdominal pain. He states he tried taking Pepto-Bismol with no relief. PCP Dr. Pastrana (SHRADDHA DAVIS APRN) Review of Systems Review of Systems Constitutional: Denies fever or chills [] Eyes: Denies change in visual acuity, redness, or eye pain [] HENT: Denies nasal congestion or sore throat [] Respiratory: Denies cough or shortness of breath [] Cardiovascular: No additional information not addressed in HPI [] GI: Reports nausea vomiting and diarrhea. Denies abdominal pain, bloody stools : Denies dysuria or hematuria [] Musculoskeletal: Denies back pain or joint pain [] Integument: Denies rash or skin lesions [] Neurologic: Denies headache, focal weakness or sensory changes [] All other systems were reviewed and found to be within normal limits, except as documented in this note. (SHRADDHA DAVIS APRN) Current Medications Current Medications Current Medications Medications (Trade) Dose Ordered Sig/Brandie Start Time Stop Time Status Last Admin Dose Admin Famotidine (Pepcid Vial) 20 mg 1X ONCE 04/15/18 20:00 04/15/18 20:03 DC 04/15/18 20:15 20 MG Morphine Sulfate (Morphine Sulfate) 4 mg 1X ONCE 04/15/18 20:00 04/15/18 20:03 DC 04/15/18 20:16 4 MG Ondansetron HCl (Zofran) 4 mg 1X ONCE 04/15/18 20:00 04/15/18 20:03 DC 04/15/18 20:15 4 MG Sodium Chloride 1,000 ml @ 1,000 mls/hr 1X ONCE 04/15/18 20:00 04/15/18 20:59 DC 04/15/18 20:13 1,000 MLS/HR (MEME NGUYEN DO) Allergies Allergies Allergies Coded Allergies Type Severity Reaction Last Updated Verified No Known Drug Allergies 03/17/18 No (MEME NGUYEN DO) Physical Exam Physical Exam Constitutional: Well developed, well nourished, no acute distress, non-toxic appearance. [] HENT: Normocephalic, atraumatic, bilateral external ears normal, oropharynx moist, no oral exudates, nose normal. [] Eyes: PERRLA, EOMI, conjunctiva normal, no discharge. [] Neck: Normal range of motion, no tenderness, supple, no stridor. [] Cardiovascular:Heart rate regular rhythm, no murmur [] Lungs & Thorax: Bilateral breath sounds clear to auscultation [] Abdomen: Patient is actively vomiting in the ED. Bowel sounds normal, soft, no tenderness, no masses, no pulsatile masses. [] Skin: Warm, dry, no erythema, no rash. [] Back: No tenderness, no CVA tenderness. [] Extremities: No tenderness, no cyanosis, no clubbing, ROM intact, no edema. [] Neurologic: Alert and oriented X 3, normal motor function, normal sensory function, no focal deficits noted. [] Psychologic: Affect normal, judgement normal, mood normal. [] (SHRADDHA DAVIS APRN) Current Patient Data Vital Signs Vital Signs Date Time Temp Pulse Resp B/P (MAP) Pulse Ox O2 Delivery O2 Flow Rate FiO2 04/15/18 22:14 112 130/68 (88) 96 04/15/18 20:16 18 Room Air 04/15/18 19:45 98.0 98.0 (MEME NGUYEN DO) Lab Values Laboratory Tests Test 04/15/18 20:00 04/15/18 20:22 04/15/18 20:35 04/15/18 21:05 Sodium Level 137 mmol/L (136-145) Potassium Level 4.8 mmol/L (3.5-5.1) Chloride Level 101 mmol/L (98-107) Carbon Dioxide Level 20 mmol/L (21-32) L Anion Gap 16 (6-14) H Blood Urea Nitrogen 43 mg/dL (8-26) H Creatinine 1.7 mg/dL (0.7-1.3) H Estimated GFR (Cockcroft-Gault) 38.7 BUN/Creatinine Ratio 25 (6-20) H Glucose Level 224 mg/dL (70-99) H Calcium Level 9.4 mg/dL (8.5-10.1) Total Bilirubin 0.7 mg/dL (0.2-1.0) Aspartate Amino Transferase (AST) 33 U/L (15-37) Alanine Aminotransferase (ALT) 41 U/L (16-63) Alkaline Phosphatase 144 U/L (46-116) H Total Protein 7.6 g/dL (6.4-8.2) Albumin 3.8 g/dL (3.4-5.0) Albumin/Globulin Ratio 1.0 (1.0-1.7) Lipase 44 U/L (73-393) L Ethyl Alcohol Level < 10 mg/dL (0-10) Influenza Type A Antigen Negative (NEGATIVE) Influenza Type B Antigen Negative (NEGATIVE) White Blood Count 16.4 x10^3/uL (4.0-11.0) H Red Blood Count 4.03 x10^6/uL (4.30-5.70) L Hemoglobin 12.8 g/dL (13.0-17.5) L Hematocrit 39.4 % (39.0-53.0) Mean Corpuscular Volume 98 fL (79-100) Mean Corpuscular Hemoglobin 32 pg (25-35) Mean Corpuscular Hemoglobin Concent 33 g/dL (31-37) Red Cell Distribution Width 14.2 % (11.5-14.5) Platelet Count 462 x10^3/uL (140-400) H Neutrophils (%) (Auto) 90 % (31-73) H Lymphocytes (%) (Auto) 4 % (24-48) L Monocytes (%) (Auto) 5 % (0-9) Eosinophils (%) (Auto) 0 % (0-3) Basophils (%) (Auto) 1 % (0-3) Neutrophils # (Auto) 14.9 x10^3uL (1.8-7.7) H Lymphocytes # (Auto) 0.7 x10^3/uL (1.0-4.8) L Monocytes # (Auto) 0.8 x10^3/uL (0.0-1.1) Eosinophils # (Auto) 0.0 x10^3/uL (0.0-0.7) Basophils # (Auto) 0.1 x10^3/uL (0.0-0.2) Segmented Neutrophils % 94 % (35-66) H Lymphocytes % 5 % (24-48) L Monocytes % 1 % (0-10) Platelet Estimate Increased (ADEQUATE) Large Platelets Occ Polychromasia Slight Crenated Cell Present Urine Color Adriane Urine Clarity Clear Urine pH 5.0 Urine Specific [place] >=1.030 Urine Protein 30 mg/dL (NEG-TRACE) Urine Glucose (UA) 100 mg/dL (NEG) Urine Ketones (Stick) Trace mg/dL (NEG) Urine Blood Negative (NEG) Urine Nitrite Negative (NEG) Urine Bilirubin Small (NEG) Urine Urobilinogen Dipstick 0.2 mg/dL (0.2 mg/dL) Urine Leukocyte Esterase Negative (NEG) Urine RBC 0 /HPF (0-2) Urine WBC Occ /HPF (0-4) Urine Squamous Epithelial Cells Occ /LPF Urine Bacteria 0 /HPF (0-FEW) Urine Hyaline Casts Occasional /HPF Urine Mucus Mod /LPF Urine Opiates Screen Pos (NEG) Urine Methadone Screen Neg (NEG) Urine Barbiturates Neg (NEG) Urine Phencyclidine Screen Neg (NEG) Urine Amphetamine/Methamphetamine Neg (NEG) Urine Benzodiazepines Screen Neg (NEG) Urine Cocaine Screen Neg (NEG) Urine Cannabinoids Screen Neg (NEG) Urine Ethyl Alcohol Neg (NEG) Laboratory Tests 04/15/18 20:35 Laboratory Tests 04/15/18 20:00 (MEME NGUYEN DO) Lab Values Laboratory Tests Test 04/15/18 20:00 04/15/18 20:22 04/15/18 20:35 04/15/18 21:05 Sodium Level 137 mmol/L (136-145) Potassium Level 4.8 mmol/L (3.5-5.1) Chloride Level 101 mmol/L (98-107) Carbon Dioxide Level 20 mmol/L (21-32) L Anion Gap 16 (6-14) H Blood Urea Nitrogen 43 mg/dL (8-26) H Creatinine 1.7 mg/dL (0.7-1.3) H Estimated GFR (Cockcroft-Gault) 38.7 BUN/Creatinine Ratio 25 (6-20) H Glucose Level 224 mg/dL (70-99) H Calcium Level 9.4 mg/dL (8.5-10.1) Total Bilirubin 0.7 mg/dL (0.2-1.0) Aspartate Amino Transferase (AST) 33 U/L (15-37) Alanine Aminotransferase (ALT) 41 U/L (16-63) Alkaline Phosphatase 144 U/L (46-116) H Total Protein 7.6 g/dL (6.4-8.2) Albumin 3.8 g/dL (3.4-5.0) Albumin/Globulin Ratio 1.0 (1.0-1.7) Lipase 44 U/L (73-393) L Ethyl Alcohol Level < 10 mg/dL (0-10) Influenza Type A Antigen Negative (NEGATIVE) Influenza Type B Antigen Negative (NEGATIVE) White Blood Count 16.4 x10^3/uL (4.0-11.0) H Red Blood Count 4.03 x10^6/uL (4.30-5.70) L Hemoglobin 12.8 g/dL (13.0-17.5) L Hematocrit 39.4 % (39.0-53.0) Mean Corpuscular Volume 98 fL (79-100) Mean Corpuscular Hemoglobin 32 pg (25-35) Mean Corpuscular Hemoglobin Concent 33 g/dL (31-37) Red Cell Distribution Width 14.2 % (11.5-14.5) Platelet Count 462 x10^3/uL (140-400) H Neutrophils (%) (Auto) 90 % (31-73) H Lymphocytes (%) (Auto) 4 % (24-48) L Monocytes (%) (Auto) 5 % (0-9) Eosinophils (%) (Auto) 0 % (0-3) Basophils (%) (Auto) 1 % (0-3) Neutrophils # (Auto) 14.9 x10^3uL (1.8-7.7) H Lymphocytes # (Auto) 0.7 x10^3/uL (1.0-4.8) L Monocytes # (Auto) 0.8 x10^3/uL (0.0-1.1) Eosinophils # (Auto) 0.0 x10^3/uL (0.0-0.7) Basophils # (Auto) 0.1 x10^3/uL (0.0-0.2) Segmented Neutrophils % 94 % (35-66) H Lymphocytes % 5 % (24-48) L Monocytes % 1 % (0-10) Platelet Estimate Increased (ADEQUATE) Large Platelets Occ Polychromasia Slight Crenated Cell Present Urine Color Adriane Urine Clarity Clear Urine pH 5.0 Urine Specific [place] >=1.030 Urine Protein 30 mg/dL (NEG-TRACE) Urine Glucose (UA) 100 mg/dL (NEG) Urine Ketones (Stick) Trace mg/dL (NEG) Urine Blood Negative (NEG) Urine Nitrite Negative (NEG) Urine Bilirubin Small (NEG) Urine Urobilinogen Dipstick 0.2 mg/dL (0.2 mg/dL) Urine Leukocyte Esterase Negative (NEG) Urine RBC 0 /HPF (0-2) Urine WBC Occ /HPF (0-4) Urine Squamous Epithelial Cells Occ /LPF Urine Bacteria 0 /HPF (0-FEW) Urine Hyaline Casts Occasional /HPF Urine Mucus Mod /LPF Urine Opiates Screen Pos (NEG) Urine Methadone Screen Neg (NEG) Urine Barbiturates Neg (NEG) Urine Phencyclidine Screen Neg (NEG) Urine Amphetamine/Methamphetamine Neg (NEG) Urine Benzodiazepines Screen Neg (NEG) Urine Cocaine Screen Neg (NEG) Urine Cannabinoids Screen Neg (NEG) Urine Ethyl Alcohol Neg (NEG) Laboratory Tests 04/15/18 20:35 Laboratory Tests 04/15/18 20:00 (MARIA ESTHERUNGASHRADDHA STATE'S ATTORNEY) EKG EKG [] (RITOASHRADDHA STATE'S ATTORNEY) Radiology/Procedures Radiology/Procedures []PROCEDURE: CT ABDOMEN PELVIS WO CONTRAST CT Abdomen and Pelvis without contrast History: Nausea, vomiting, diarrhea, abdominal pain since yesterday Technique: Noncontrast CT imaging was performed of the abdomen and pelvis. Multiplanar images are reviewed. Exposure: One or more of the following individualized dose reduction techniques were utilized for this examination: 1. Automated exposure control 2. Adjustment of the mA and/or kV according to patient size 3. Use of iterative reconstruction technique. Comparison: None Findings: There is no significant abnormality of the limited visualized lung bases. There is moderate to large hiatal hernia. There is some coronary calcification. Evaluation of the abdominal visceral organs is limited without intravenous contrast, no osseous metastases focal abnormality liver, spleen, pancreas. Gallbladder is somewhat distended, no obvious intraluminal abnormality by CT. There is no renal calculus or hydronephrosis. There is mild strandy change of the bilateral perinephric fat. Accurate evaluation of bowel is limited without oral contrast, no bowel dilatation, free air, free fluid. There are some air-fluid levels in the colon. There may be a tiny appendicolith of the proximal aspect of the short appendix. There is mild sigmoid diverticulosis. There is some fat in the left inguinal canal, no bowel. There is multilevel lumbar facet degenerative change. There is at least moderate spinal stenosis L4-5. Impression: 1. There are some air-fluid levels in the colon as may be seen with diarrheal state, no significant inflammatory type change. There is mild sigmoid diverticulosis. 2. Gallbladder appears slightly distended although no intraluminal abnormality by CT. 3. There is hiatal hernia. Electronically signed by: Eric Kilpatrick MD (04/15/2018 9:57 PM) [facility] DICTATED and SIGNED BY: ERIC KILPATRICK MD DATE: 04/15/182129 (SHRADDHA DAVIS APRN) Course & Med Decision Making Course & Med Decision Making Pertinent Labs and Imaging studies reviewed. (See chart for details) This is a 82-year-old male patient presented to the ED today with nausea vomiting and diarrhea that began yesterday. Patient arrives in the ED actively vomiting. CBC with a WBC of 16.4 and a left shift, CMP with creatinine of 1.7, BUN 43, nuchal was 224, anion gap 16. Urine also noted for dehydration. Patient was given a liter of fluid, Zofran, Pepcid. He states is feeling slightly better but still feels nauseated. CT of the abdomen and pelvic was noted for diarrhea in the colon otherwise no acute findings. Patient was admitted. Report to be given to Dr. Gay by Dr. Nguyen IV fluids ordered on admission as well as antiemetics. Routine consult placed for GI (SHRADDHA DAVIS APRN) Dragon Disclaimer Dragon Disclaimer This electronic medical record was generated, in whole or in part, using a voice recognition dictation system. (SHRADDHA DAVIS APRN) Departure Departure Impression: Primary Impression: Intractable nausea and vomiting Additional Impression: Intractable diarrhea Disposition: ADMITTED INPATIENT Condition: STABLE Referrals: FRED PASTRANA MD (PCP) Attending Signature Attending Signature I have reviewed the PA/STORE PLANNER's note and plan of care. I was available for consultation as needed during the patient's visit in the emergency department. I agree with the clinical impression, plan, and disposition. (MEME NGUYEN DO) Problem Qualifiers Primary Impression: Intractable nausea and vomiting Vomiting type: unspecified Qualified Codes: R11.2 - Nausea with vomiting, unspecified MARIA ESTHERBREANNASHRADDHA ALVA Apr 15, 2018 20:15 MEME NGUYEN DO Apr 16, 2018 04:37
[2018-04-15 20:43] LABS: CALCIUM 9.4 mg/dL (8.5-10.1); CREATININE 1.7 mg/dL (0.7-1.3); GFR 38.7; POTASSIUM 4.8 mmol/L (3.5-5.1)
[2018-04-15 20:47] LABS: BASO # 0.1 x10^3/uL (0.0-0.2); BASO % 1 % (0-3); EOS % 0 % (0-3); HEMATOCRIT 39.4 % (39.0-53.0); HEMOGLOBIN 12.8 g/dL (13.0-17.5); LYMPH # 0.7 x10^3/uL (1.0-4.8); LYMPH % 4 % (24-48); MEAN CORPUSCULAR HEMOGLOBIN 32 pg (25-35); MEAN CORPUSCULAR HGB CONC 33 g/dL (31-37); MEAN CORPUSCULAR VOLUME 98 fL (79-100); MONO # 0.8 x10^3/uL (0.0-1.1); MONO % 5 % (0-9); NEUT # 14.9 x10^3uL (1.8-7.7); NEUT % 90 % (31-73); PLATELET COUNT 462 x10^3/uL (140-400); RED BLOOD COUNT 4.03 x10^6/uL (4.30-5.70); RED CELL DISTRIBUTION WIDTH 14.2 % (11.5-14.5); WHITE BLOOD COUNT 16.4 x10^3/uL (4.0-11.0)
[2018-04-15 20:47] LABS: INFLUENZA A PATIENT NEGATIVE (NEGATIVE); INFLUENZA B PATIENT NEGATIVE (NEGATIVE)
[2018-04-15 20:49] LABS: ALBUMIN 3.8 g/dL (3.4-5.0); TOTAL BILIRUBIN 0.7 mg/dL (0.2-1.0); TOTAL PROTEIN 7.6 g/dL (6.4-8.2)
[2018-04-15 21:15] LABS: BILIRUBIN,URINE SMALL (NEG); CLARITY,URINE CLEAR; COLOR,URINE AMBER; NITRITE,URINE NEGATIVE (NEG); PROTEIN,URINE 30 mg/dL (NEG-TRACE); UROBILINOGEN,URINE 0.2 mg/dL (0.2 mg/dL)
[2018-04-15 21:22] LABS: BARBITURATES NEG (NEG); BENZODIAZEPINES NEG (NEG); CANNABINOIDS NEG (NEG); COCAINE NEG (NEG); METHADONE NEG (NEG); OPIATES POS (NEG); PHENCYCLIDINE NEG (NEG)
[2018-04-15 21:26] LABS: AMPHETAMINE/METHAMPHETAMINE NEG (NEG); BACTERIA,URINE 0 /HPF (0-FEW); HYALINE CASTS, URINE OCCASIONAL /HPF; RBC,URINE 0 /HPF (0-2); SQUAMOUS EPITHELIAL CELL,UR OCC /LPF; WBC,URINE OCC /HPF (0-4)
--- NOTE | 2018-04-15 22:00 | RAD ---
CT Abdomen and Pelvis without contrast History: Nausea, vomiting, diarrhea, abdominal pain since yesterday Technique: Noncontrast CT imaging was performed of the abdomen and pelvis. Multiplanar images are reviewed. Exposure: One or more of the following individualized dose reduction techniques were utilized for this examination: 1. Automated exposure control 2. Adjustment of the mA and/or kV according to patient size 3. Use of iterative reconstruction technique. Comparison: None Findings: There is no significant abnormality of the limited visualized lung bases. There is moderate to large hiatal hernia. There is some coronary calcification. Evaluation of the abdominal visceral organs is limited without intravenous contrast, no osseous metastases focal abnormality liver, spleen, pancreas. Gallbladder is somewhat distended, no obvious intraluminal abnormality by CT. There is no renal calculus or hydronephrosis. There is mild strandy change of the bilateral perinephric fat. Accurate evaluation of bowel is limited without oral contrast, no bowel dilatation, free air, free fluid. There are some air-fluid levels in the colon. There may be a tiny appendicolith of the proximal aspect of the short appendix. There is mild sigmoid diverticulosis. There is some fat in the left inguinal canal, no bowel. There is multilevel lumbar facet degenerative change. There is at least moderate spinal stenosis L4-5. Impression: 1. There are some air-fluid levels in the colon as may be seen with diarrheal state, no significant inflammatory type change. There is mild sigmoid diverticulosis. 2. Gallbladder appears slightly distended although no intraluminal abnormality by CT. 3. There is hiatal hernia. Electronically signed by: Kade Hanna MD (04/15/2018 9:57 PM) [facility]
[2018-04-15 22:05] LABS: % LYMPHS 5 % (24-48); % MONOS 1 % (0-10); % SEGS 94 % (35-66); PLT ESTIMATE INCREASED (ADEQUATE); POLYCHROMASIA SLIGHT
[2018-04-15 23:30] VITALS: BP 142/84
[2018-04-15] MEDS ORDERED: MORPHINE SULFATE 4 MG/ML VIAL. IV PRN (23:30)
[2018-04-15] MEDS ORDERED: DEXTROSE 50% 25 GM / 50ML DISP.SYRIN. IV PRN (23:30)
[2018-04-15] MEDS ORDERED: ACETAMINOPHEN 325 MG TABLET. PO PRN (23:30)
[2018-04-15] MEDS ORDERED: diazePAM 5 MG TABLET PO ONE (23:45)
[2018-04-15] MEDS ORDERED: FERR325T14 PO (23:59)
[2018-04-16] MEDS: ONDANSETRON PF 4 MG/2 ML VIAL. IV PRN ×2 (00:07→10:31)
[2018-04-16] MEDS: ZOLPIDEM 5 MG TABLET. PO PRN ×2 (00:07→20:59)
[2018-04-16 03:00] VITALS: BP 128/74
[2018-04-16 07:00] VITALS: BP 133/58
[2018-04-16 07:10] LABS: ALBUMIN 3.4 g/dL (3.4-5.0); ALBUMIN/GLOBULIN RATIO 0.9 (1.0-1.7); CALCIUM 8.6 mg/dL (8.5-10.1); CREATININE 1.8 mg/dL (0.7-1.3); GFR 36.2; POTASSIUM 4.2 mmol/L (3.5-5.1); TOTAL BILIRUBIN 0.6 mg/dL (0.2-1.0)
[2018-04-16 07:40] LABS: BASO % 0 % (0-3); EOS % 0 % (0-3); HEMATOCRIT 40.1 % (39.0-53.0); HEMOGLOBIN 13.2 g/dL (13.0-17.5); LYMPH # 0.6 x10^3/uL (1.0-4.8); LYMPH % 4 % (24-48); MEAN CORPUSCULAR HEMOGLOBIN 32 pg (25-35); MEAN CORPUSCULAR HGB CONC 33 g/dL (31-37); MEAN CORPUSCULAR VOLUME 98 fL (79-100); MONO # 0.8 x10^3/uL (0.0-1.1); MONO % 5 % (0-9); NEUT # 16.7 x10^3uL (1.8-7.7); NEUT % 92 % (31-73); PLATELET COUNT 438 x10^3/uL (140-400); RED BLOOD COUNT 4.08 x10^6/uL (4.30-5.70); WHITE BLOOD COUNT 18.2 x10^3/uL (4.0-11.0)
[2018-04-16] MEDS ORDERED: metFORMIN 500 MG TABLET PO SCH (08:00)
[2018-04-16] MEDS: FERROUS SULFATE 325 MG TABLET. PO SCH (08:23)
[2018-04-16] MEDS: LOSARTAN POTASSIUM 25 MG TABLET. PO SCH (08:25)
[2018-04-16] MEDS: ASPIRIN 325 MG TABLET PO SCH ×2 (08:25→17:42)
[2018-04-16] MEDS: CHOLECALCIFEROL (VITAMIN D3) 5,000 UNIT CAPSULE PO SCH (08:25)
[2018-04-16] MEDS: INSULIN LISPRO 300 UNITS/3 ML INSULN.PEN. SQ SCH ×3 (08:49→18:03)
--- NOTE | 2018-04-16 09:17 | PDOC2 ---
GI CONSULT Reason For Consult: N/v/d HPI: HPI: 82 y/o male who was seen earlier this morning. Reports acute onset of vomiting and diarrhea on Friday afternoon. Denies precipitating events. Last vomited "clear" this morning per RN before eating jello and taking pills. During interview, moved from chair to commode w/ difficulty (legs weak, staff helped) - had a dark liquid stool. Denies abd pain. No hematemesis or hematochezia but says "diarrhea looks black." Typically no chronic GI problems - denies reflux/heartburn, dysphagia, and weight loss. Thinks had EGD and colonoscopy 10 years ago (no records at our office). He reports both were normal - chart lists h/o colon polyps. Denies GB, liver, and pancreas history. Takes ASA and iron at home. On CT: some distended GB, air-fluid levels in colon, tiny appendicolith, mild sigmoid diverticulosis, and moderate to large hiatal hernia. PMH: PMH: HTN, KATJA, DM, HLD, hiatal hernia, diverticulosis bilateral knee replacements, shoulder surgery, vasectomy FH: Family History: Cancer (ovarian), DM Social History: Smoke: No ALCOHOL: none Drugs: None ROS: GEN: Denies fevers, chills, sweats HEENT: Denies blurred vision, sore throat CV: Denies chest pain RESP: Denies shortness of air, cough GI: Per HPI : Denies hematuria, dysuria ENDO: Denies weight changes NEURO: Denies confusion, dizziness MSK: +weakness SKIN: Denies jaundice, pruritus Vitals: Vitals: Vital Signs Date Time Temp Pulse Resp B/P (MAP) Pulse Ox O2 Delivery O2 Flow Rate FiO2 04/16/18 08:25 119 128/74 04/16/18 07:00 98.5 19 98 Room Air 98.5 Labs: Labs: Laboratory Tests Test 04/15/18 20:00 04/15/18 20:22 04/15/18 20:35 04/15/18 21:05 Sodium Level 137 mmol/L (136-145) Potassium Level 4.8 mmol/L (3.5-5.1) Chloride Level 101 mmol/L (98-107) Carbon Dioxide Level 20 mmol/L (21-32) Anion Gap 16 (6-14) Blood Urea Nitrogen 43 mg/dL (8-26) Creatinine 1.7 mg/dL (0.7-1.3) Estimated GFR (Cockcroft-Gault) 38.7 BUN/Creatinine Ratio 25 (6-20) Glucose Level 224 mg/dL (70-99) Calcium Level 9.4 mg/dL (8.5-10.1) Total Bilirubin 0.7 mg/dL (0.2-1.0) Aspartate Amino Transf (AST/SGOT) 33 U/L (15-37) Alanine Aminotransferase (ALT/SGPT) 41 U/L (16-63) Alkaline Phosphatase 144 U/L (46-116) Total Protein 7.6 g/dL (6.4-8.2) Albumin 3.8 g/dL (3.4-5.0) Albumin/Globulin Ratio 1.0 (1.0-1.7) Lipase 44 U/L (73-393) Ethyl Alcohol Level < 10 mg/dL (0-10) Influenza Type A Antigen Negative (NEGATIVE) Influenza Type B Antigen Negative (NEGATIVE) White Blood Count 16.4 x10^3/uL (4.0-11.0) Red Blood Count 4.03 x10^6/uL (4.30-5.70) Hemoglobin 12.8 g/dL (13.0-17.5) Hematocrit 39.4 % (39.0-53.0) Mean Corpuscular Volume 98 fL (79-100) Mean Corpuscular Hemoglobin 32 pg (25-35) Mean Corpuscular Hemoglobin Concent 33 g/dL (31-37) Red Cell Distribution Width 14.2 % (11.5-14.5) Platelet Count 462 x10^3/uL (140-400) Neutrophils (%) (Auto) 90 % (31-73) Lymphocytes (%) (Auto) 4 % (24-48) Monocytes (%) (Auto) 5 % (0-9) Eosinophils (%) (Auto) 0 % (0-3) Basophils (%) (Auto) 1 % (0-3) Neutrophils # (Auto) 14.9 x10^3uL (1.8-7.7) Lymphocytes # (Auto) 0.7 x10^3/uL (1.0-4.8) Monocytes # (Auto) 0.8 x10^3/uL (0.0-1.1) Eosinophils # (Auto) 0.0 x10^3/uL (0.0-0.7) Basophils # (Auto) 0.1 x10^3/uL (0.0-0.2) Segmented Neutrophils % 94 % (35-66) Lymphocytes % 5 % (24-48) Monocytes % 1 % (0-10) Platelet Estimate Increased (ADEQUATE) Large Platelets Occ Polychromasia Slight Crenated Cell Present Urine Color Adriane Urine Clarity Clear Urine pH 5.0 Urine Specific [place] >=1.030 Urine Protein 30 mg/dL (NEG-TRACE) Urine Glucose (UA) 100 mg/dL (NEG) Urine Ketones (Stick) Trace mg/dL (NEG) Urine Blood Negative (NEG) Urine Nitrite Negative (NEG) Urine Bilirubin Small (NEG) Urine Urobilinogen Dipstick 0.2 mg/dL (0.2 mg/dL) Urine Leukocyte Esterase Negative (NEG) Urine RBC 0 /HPF (0-2) Urine WBC Occ /HPF (0-4) Urine Squamous Epithelial Cells Occ /LPF Urine Bacteria 0 /HPF (0-FEW) Urine Hyaline Casts Occasional /HPF Urine Mucus Mod /LPF Urine Opiates Screen Pos (NEG) Urine Methadone Screen Neg (NEG) Urine Barbiturates Neg (NEG) Urine Phencyclidine Screen Neg (NEG) Urine Amphetamine/Methamphetamine Neg (NEG) Urine Benzodiazepines Screen Neg (NEG) Urine Cocaine Screen Neg (NEG) Urine Cannabinoids Screen Neg (NEG) Urine Ethyl Alcohol Neg (NEG) Test 04/16/18 05:35 White Blood Count 18.2 x10^3/uL (4.0-11.0) Red Blood Count 4.08 x10^6/uL (4.30-5.70) Hemoglobin 13.2 g/dL (13.0-17.5) Hematocrit 40.1 % (39.0-53.0) Mean Corpuscular Volume 98 fL (79-100) Mean Corpuscular Hemoglobin 32 pg (25-35) Mean Corpuscular Hemoglobin Concent 33 g/dL (31-37) Red Cell Distribution Width 14.0 % (11.5-14.5) Platelet Count 438 x10^3/uL (140-400) Neutrophils (%) (Auto) 92 % (31-73) Lymphocytes (%) (Auto) 4 % (24-48) Monocytes (%) (Auto) 5 % (0-9) Eosinophils (%) (Auto) 0 % (0-3) Basophils (%) (Auto) 0 % (0-3) Neutrophils # (Auto) 16.7 x10^3uL (1.8-7.7) Lymphocytes # (Auto) 0.6 x10^3/uL (1.0-4.8) Monocytes # (Auto) 0.8 x10^3/uL (0.0-1.1) Eosinophils # (Auto) 0.0 x10^3/uL (0.0-0.7) Basophils # (Auto) 0.0 x10^3/uL (0.0-0.2) Sodium Level 138 mmol/L (136-145) Potassium Level 4.2 mmol/L (3.5-5.1) Chloride Level 102 mmol/L (98-107) Carbon Dioxide Level 21 mmol/L (21-32) Anion Gap 15 (6-14) Blood Urea Nitrogen 41 mg/dL (8-26) Creatinine 1.8 mg/dL (0.7-1.3) Estimated GFR (Cockcroft-Gault) 36.2 BUN/Creatinine Ratio 23 (6-20) Glucose Level 246 mg/dL (70-99) Calcium Level 8.6 mg/dL (8.5-10.1) Total Bilirubin 0.6 mg/dL (0.2-1.0) Aspartate Amino Transf (AST/SGOT) 20 U/L (15-37) Alanine Aminotransferase (ALT/SGPT) 33 U/L (16-63) Alkaline Phosphatase 126 U/L (46-116) Total Protein 7.0 g/dL (6.4-8.2) Albumin 3.4 g/dL (3.4-5.0) Albumin/Globulin Ratio 0.9 (1.0-1.7) Allergies: Coded Allergies: No Known Drug Allergies (Unverified , 03/17/18) Medications: Current Medications Medications (Trade) Dose Ordered Sig/Brandie Route PRN Reason Start Time Stop Time Status Last Admin Dose Admin Sodium Chloride 1,000 ml @ 1,000 mls/hr 1X ONCE IV 04/15/18 20:00 04/15/18 20:59 DC 04/15/18 20:13 Ondansetron HCl (Zofran) 4 mg 1X ONCE IV 04/15/18 20:00 04/15/18 20:03 DC 04/15/18 20:15 Famotidine (Pepcid Vial) 20 mg 1X ONCE IVP 04/15/18 20:00 04/15/18 20:03 DC 04/15/18 20:15 Morphine Sulfate (Morphine Sulfate) 4 mg 1X ONCE IV 04/15/18 20:00 04/15/18 20:03 DC 04/15/18 20:16 Ondansetron HCl (Zofran) 4 mg PRN Q8HRS PRN IV NAUSEA/VOMITING 04/15/18 23:30 04/16/18 23:29 04/16/18 00:07 Insulin Human Lispro (HumaLOG) 0-5 UNITS TIDWMEALS SQ 04/16/18 08:00 04/16/18 08:49 Diazepam (Valium) 5 mg 1X ONCE PO 04/15/18 23:45 04/15/18 23:46 DC 04/16/18 06:06 Sodium Chloride 1,000 ml @ 125 mls/hr 1X ONCE IV 04/15/18 23:30 04/16/18 07:29 DC 04/16/18 00:07 Zolpidem Tartrate (Ambien) 5 mg PRN QHS PRN PO INSOMNIA 04/16/18 00:00 04/16/18 00:07 Aspirin (Odalys Aspirin) 325 mg BIDWMEALS PO 04/16/18 08:00 04/16/18 08:25 Ferrous Sulfate (Feosol) 325 mg DAILY PO 04/16/18 09:00 04/16/18 08:23 Losartan Potassium (Cozaar) 25 mg DAILY PO 04/16/18 09:00 04/16/18 08:25 Vitamin D (Vitamin D3) 5,000 unit DAILY PO 04/16/18 09:00 04/16/18 08:25 Metformin HCl (Glucophage) 500 mg BIDWMEALS PO 04/16/18 08:00 04/16/18 08:23 Imaging: Imaging: CT A/P Findings: There is no significant abnormality of the limited visualized lung bases. There is moderate to large hiatal hernia. There is some coronary calcification. Evaluation of the abdominal visceral organs is limited without intravenous contrast, no osseous metastases focal abnormality liver, spleen, pancreas. Gallbladder is somewhat distended, no obvious intraluminal abnormality by CT. There is no renal calculus or hydronephrosis. There is mild strandy change of the bilateral perinephric fat. Accurate evaluation of bowel is limited without oral contrast, no bowel dilatation, free air, free fluid. There are some air-fluid levels in the colon. There may be a tiny appendicolith of the proximal aspect of the short appendix. There is mild sigmoid diverticulosis. There is some fat in the left inguinal canal, no bowel. There is multilevel lumbar facet degenerative change. There is at least moderate spinal stenosis L4-5. Impression: 1. There are some air-fluid levels in the colon as may be seen with diarrheal state, no significant inflammatory type change. There is mild sigmoid diverticulosis. 2. Gallbladder appears slightly distended although no intraluminal abnormality by CT. 3. There is hiatal hernia. PE: GEN: doesn't feel well - unsteady with attempting to stand from recliner to get to commode HEENT: Atraumatic, PERRL LUNGS: intermittent tachypnea HEART: tachycardia ABD: examine difficult - he frequently moves w/ attempts to move to bed, BS+, round, non-tender EXTREMITY: No edema SKIN: No rashes, no jaundice NEURO/PSYCH: A & O 3, doesn't say much A/P: A/P: Vomiting, diarrhea ("black" - takes iron) Tachycardia Leukocytosis, thrombocytosis, BHAVYA/CKD, DM/hyperglycemia Hiatal hernia - moderate to large on CT CRC screen, ?h/o colon polyps - unclear timing Diverticulosis -- ?infectious Continue supportive care. C Diff and stool culture ordered by ER - so far uncollected, await these. Seems rosales to keep to clears for now. Add PPI - IV for now until reliably eating. Could consider UGI, RUQ US, or GES later if indicated. BELINDA LOVETT Apr 16, 2018 09:17
[2018-04-16] MEDS: PANTOPRAZOLE IV PUSH 40 MG VIAL. IVP SCH ×2 (10:31→17:41)
[2018-04-16] MEDS: IV RINGERS,LACTATED 1000ML 1,000 ML IV SCH ×2 (10:31→20:59)
[2018-04-16 11:00] VITALS: BP 144/80
--- NOTE | 2018-04-16 13:56 | NUR ---
SW following for discharge planning. Discussed with RN, RN waiting to get stool samples. SW will continue to follow.
[2018-04-16 15:00] VITALS: BP 124/60
--- NOTE | 2018-04-16 16:19 | PDOC1 ---
History and Physical Date of Admission Date of Admission 04/16/2018 Identification/Chief Complaint Chief Complaint Nausea vomiting and diarrhea Source Source: Chart review, Patient History of Present Illness History of Present Illness Patient is an 82-year-old gentleman who comes today with a history of more or less 3 days onset of abdominal discomfort. The patient describes nausea and subsequently vomiting of gastric content. The patient has been unable to have oral intake due to his symptoms. The patient denies dietary transgressions no travels outside the area no sick contacts were reported. The patient denies having pets at home no history of herbal supplements or changes to his medications recently have been done. The patient subsequently also developed diarrhea which she describes as watery no foul-smelling no blood was reported in the stools. The patient denies recent history of antibiotic use he denies history of recent viral infections or cold-like symptoms. The patient is being admitted for further evaluation and treatment. At the time my evaluation patient is in moderate distress due to his symptoms and seems very lethargic as a consequence of his dehydration. Plan of care explained in detail reassurance has been provided concerns address to the best of my abilities Past Medical History Cardiovascular: HTN Endocrine: Diabetes Past Surgical History Past Surgical History: Total knee replacement, Other Family History Family History: No Significant Social History Smoke: No ALCOHOL: none Drugs: None Current Medications Current Medications Current Medications Medications (Trade) Dose Ordered Sig/Brandie Start Time Stop Time Status Last Admin Dose Admin Acetaminophen (Tylenol) 650 mg PRN Q4HRS PRN 04/15/18 23:30 04/16/18 23:29 Aspirin (Odalys Aspirin) 325 mg BIDWMEALS 04/16/18 08:00 04/16/18 08:25 325 MG Atorvastatin Calcium (Lipitor) 10 mg HS 04/16/18 21:00 Dextrose (Dextrose 50%-Water Syringe) 12.5 gm PRN Q15MIN PRN 04/15/18 23:30 Diazepam (Valium) 5 mg 1X ONCE 04/15/18 23:45 04/15/18 23:46 DC 04/16/18 06:06 5 MG Famotidine (Pepcid Vial) 20 mg 1X ONCE 04/15/18 20:00 04/15/18 20:03 DC 04/15/18 20:15 20 MG Ferrous Sulfate (Feosol) 325 mg DAILY 04/16/18 09:00 04/16/18 08:23 325 MG Insulin Human Lispro (HumaLOG) 0-5 UNITS TIDWMEALS 04/16/18 08:00 04/16/18 12:08 3 UNITS Losartan Potassium (Cozaar) 25 mg DAILY 04/16/18 09:00 04/16/18 08:25 25 MG Metformin HCl (Glucophage) 500 mg BIDWMEALS 04/16/18 08:00 04/16/18 08:23 500 MG Morphine Sulfate (Morphine Sulfate) 4 mg PRN Q2HR PRN 04/15/18 23:30 04/16/18 23:29 Ondansetron HCl (Zofran) 4 mg PRN Q8HRS PRN 04/15/18 23:30 04/16/18 23:29 04/16/18 10:31 4 MG Pantoprazole Sodium (PROTONIX VIAL for IV PUSH) 40 mg BIDAC 04/16/18 09:30 04/16/18 10:31 40 MG Prochlorperazine Edisylate (Compazine) 10 mg PRN Q6HRS PRN 04/16/18 10:30 Ringer's Solution 1,000 ml @ 100 mls/hr Q10H 04/16/18 10:30 04/16/18 10:31 100 MLS/HR Sodium Chloride 1,000 ml @ 125 mls/hr 1X ONCE 04/15/18 23:30 04/16/18 07:29 DC 04/16/18 00:07 125 MLS/HR Vitamin D (Vitamin D3) 5,000 unit DAILY 04/16/18 09:00 04/16/18 08:25 5,000 UNIT Zolpidem Tartrate (Ambien) 5 mg PRN QHS PRN 04/16/18 00:00 04/16/18 00:07 5 MG Allergies Allergies Allergies Coded Allergies Type Severity Reaction Last Updated Verified No Known Drug Allergies 03/17/18 No ROS Review of System CONSTITUTIONAL: No fever or chills EYES: No recent changes SKIN: No rash or itching CARDIOVASCULAR: No chest pain, syncope, palpitations, or edema RESPIRATORY: No SOB or cough GASTROINTESTINAL: + nausea, vomiting and abdominal pain NEUROLOGICAL: No headaches or weakness ENDOCRINE: No cold or heat intolerance GENITOURINARY: No urgency or frequency of urination MUSCULOSKELETAL: No back pain or joint pain LYMPHATICS: No enlarged lymph nodes PSYCHIATRIC: No anxiety or depression Physical Exam Physical Exam GEN.: No apparent distress. Alert and oriented. HEENT: Head is normocephalic, atraumatic NECK: Supple. LUNGS: Clear to auscultation. HEART: RRR, S1, S2 present. Peripheral pulses intact ABDOMEN: Soft, nontender. Positive bowel sounds. EXTREMITIES: Without any cyanosis. NEUROLOGIC: Normal speech, normal tone PSYCHIATRIC: Normal affect, normal mood. SKIN: No ulcerations Vitals Vitals Vital Signs Date Time Temp Pulse Resp B/P (MAP) Pulse Ox O2 Delivery O2 Flow Rate FiO2 04/16/18 11:00 98.1 76 17 144/80 (101) 97 Room Air 98.1 Labs Labs Laboratory Tests Test 04/15/18 20:00 04/15/18 20:22 04/15/18 20:35 04/15/18 21:05 Sodium Level 137 mmol/L (136-145) Potassium Level 4.8 mmol/L (3.5-5.1) Chloride Level 101 mmol/L (98-107) Carbon Dioxide Level 20 mmol/L (21-32) Anion Gap 16 (6-14) Blood Urea Nitrogen 43 mg/dL (8-26) Creatinine 1.7 mg/dL (0.7-1.3) Estimated GFR (Cockcroft-Gault) 38.7 BUN/Creatinine Ratio 25 (6-20) Glucose Level 224 mg/dL (70-99) Calcium Level 9.4 mg/dL (8.5-10.1) Total Bilirubin 0.7 mg/dL (0.2-1.0) Aspartate Amino Transf (AST/SGOT) 33 U/L (15-37) Alanine Aminotransferase (ALT/SGPT) 41 U/L (16-63) Alkaline Phosphatase 144 U/L (46-116) Total Protein 7.6 g/dL (6.4-8.2) Albumin 3.8 g/dL (3.4-5.0) Albumin/Globulin Ratio 1.0 (1.0-1.7) Lipase 44 U/L (73-393) Ethyl Alcohol Level < 10 mg/dL (0-10) Influenza Type A Antigen Negative (NEGATIVE) Influenza Type B Antigen Negative (NEGATIVE) White Blood Count 16.4 x10^3/uL (4.0-11.0) Red Blood Count 4.03 x10^6/uL (4.30-5.70) Hemoglobin 12.8 g/dL (13.0-17.5) Hematocrit 39.4 % (39.0-53.0) Mean Corpuscular Volume 98 fL (79-100) Mean Corpuscular Hemoglobin 32 pg (25-35) Mean Corpuscular Hemoglobin Concent 33 g/dL (31-37) Red Cell Distribution Width 14.2 % (11.5-14.5) Platelet Count 462 x10^3/uL (140-400) Neutrophils (%) (Auto) 90 % (31-73) Lymphocytes (%) (Auto) 4 % (24-48) Monocytes (%) (Auto) 5 % (0-9) Eosinophils (%) (Auto) 0 % (0-3) Basophils (%) (Auto) 1 % (0-3) Neutrophils # (Auto) 14.9 x10^3uL (1.8-7.7) Lymphocytes # (Auto) 0.7 x10^3/uL (1.0-4.8) Monocytes # (Auto) 0.8 x10^3/uL (0.0-1.1) Eosinophils # (Auto) 0.0 x10^3/uL (0.0-0.7) Basophils # (Auto) 0.1 x10^3/uL (0.0-0.2) Segmented Neutrophils % 94 % (35-66) Lymphocytes % 5 % (24-48) Monocytes % 1 % (0-10) Platelet Estimate Increased (ADEQUATE) Large Platelets Occ Polychromasia Slight Crenated Cell Present Urine Color Adriane Urine Clarity Clear Urine pH 5.0 Urine Specific [place] >=1.030 Urine Protein 30 mg/dL (NEG-TRACE) Urine Glucose (UA) 100 mg/dL (NEG) Urine Ketones (Stick) Trace mg/dL (NEG) Urine Blood Negative (NEG) Urine Nitrite Negative (NEG) Urine Bilirubin Small (NEG) Urine Urobilinogen Dipstick 0.2 mg/dL (0.2 mg/dL) Urine Leukocyte Esterase Negative (NEG) Urine RBC 0 /HPF (0-2) Urine WBC Occ /HPF (0-4) Urine Squamous Epithelial Cells Occ /LPF Urine Bacteria 0 /HPF (0-FEW) Urine Hyaline Casts Occasional /HPF Urine Mucus Mod /LPF Urine Opiates Screen Pos (NEG) Urine Methadone Screen Neg (NEG) Urine Barbiturates Neg (NEG) Urine Phencyclidine Screen Neg (NEG) Urine Amphetamine/Methamphetamine Neg (NEG) Urine Benzodiazepines Screen Neg (NEG) Urine Cocaine Screen Neg (NEG) Urine Cannabinoids Screen Neg (NEG) Urine Ethyl Alcohol Neg (NEG) Test 04/16/18 05:35 04/16/18 07:50 04/16/18 11:26 White Blood Count 18.2 x10^3/uL (4.0-11.0) Red Blood Count 4.08 x10^6/uL (4.30-5.70) Hemoglobin 13.2 g/dL (13.0-17.5) Hematocrit 40.1 % (39.0-53.0) Mean Corpuscular Volume 98 fL (79-100) Mean Corpuscular Hemoglobin 32 pg (25-35) Mean Corpuscular Hemoglobin Concent 33 g/dL (31-37) Red Cell Distribution Width 14.0 % (11.5-14.5) Platelet Count 438 x10^3/uL (140-400) Neutrophils (%) (Auto) 92 % (31-73) Lymphocytes (%) (Auto) 4 % (24-48) Monocytes (%) (Auto) 5 % (0-9) Eosinophils (%) (Auto) 0 % (0-3) Basophils (%) (Auto) 0 % (0-3) Neutrophils # (Auto) 16.7 x10^3uL (1.8-7.7) Lymphocytes # (Auto) 0.6 x10^3/uL (1.0-4.8) Monocytes # (Auto) 0.8 x10^3/uL (0.0-1.1) Eosinophils # (Auto) 0.0 x10^3/uL (0.0-0.7) Basophils # (Auto) 0.0 x10^3/uL (0.0-0.2) Sodium Level 138 mmol/L (136-145) Potassium Level 4.2 mmol/L (3.5-5.1) Chloride Level 102 mmol/L (98-107) Carbon Dioxide Level 21 mmol/L (21-32) Anion Gap 15 (6-14) Blood Urea Nitrogen 41 mg/dL (8-26) Creatinine 1.8 mg/dL (0.7-1.3) Estimated GFR (Cockcroft-Gault) 36.2 BUN/Creatinine Ratio 23 (6-20) Glucose Level 246 mg/dL (70-99) Calcium Level 8.6 mg/dL (8.5-10.1) Total Bilirubin 0.6 mg/dL (0.2-1.0) Aspartate Amino Transf (AST/SGOT) 20 U/L (15-37) Alanine Aminotransferase (ALT/SGPT) 33 U/L (16-63) Alkaline Phosphatase 126 U/L (46-116) Total Protein 7.0 g/dL (6.4-8.2) Albumin 3.4 g/dL (3.4-5.0) Albumin/Globulin Ratio 0.9 (1.0-1.7) Glucose (Fingerstick) 230 mg/dL (70-99) 216 mg/dL (70-99) Laboratory Tests Test 04/15/18 20:00 04/15/18 20:22 04/15/18 20:35 04/15/18 21:05 Sodium Level 137 mmol/L (136-145) Potassium Level 4.8 mmol/L (3.5-5.1) Chloride Level 101 mmol/L (98-107) Carbon Dioxide Level 20 mmol/L (21-32) Anion Gap 16 (6-14) Blood Urea Nitrogen 43 mg/dL (8-26) Creatinine 1.7 mg/dL (0.7-1.3) Estimated GFR (Cockcroft-Gault) 38.7 BUN/Creatinine Ratio 25 (6-20) Glucose Level 224 mg/dL (70-99) Calcium Level 9.4 mg/dL (8.5-10.1) Total Bilirubin 0.7 mg/dL (0.2-1.0) Aspartate Amino Transf (AST/SGOT) 33 U/L (15-37) Alanine Aminotransferase (ALT/SGPT) 41 U/L (16-63) Alkaline Phosphatase 144 U/L (46-116) Total Protein 7.6 g/dL (6.4-8.2) Albumin 3.8 g/dL (3.4-5.0) Albumin/Globulin Ratio 1.0 (1.0-1.7) Lipase 44 U/L (73-393) Ethyl Alcohol Level < 10 mg/dL (0-10) Influenza Type A Antigen Negative (NEGATIVE) Influenza Type B Antigen Negative (NEGATIVE) White Blood Count 16.4 x10^3/uL (4.0-11.0) Red Blood Count 4.03 x10^6/uL (4.30-5.70) Hemoglobin 12.8 g/dL (13.0-17.5) Hematocrit 39.4 % (39.0-53.0) Mean Corpuscular Volume 98 fL (79-100) Mean Corpuscular Hemoglobin 32 pg (25-35) Mean Corpuscular Hemoglobin Concent 33 g/dL (31-37) Red Cell Distribution Width 14.2 % (11.5-14.5) Platelet Count 462 x10^3/uL (140-400) Neutrophils (%) (Auto) 90 % (31-73) Lymphocytes (%) (Auto) 4 % (24-48) Monocytes (%) (Auto) 5 % (0-9) Eosinophils (%) (Auto) 0 % (0-3) Basophils (%) (Auto) 1 % (0-3) Neutrophils # (Auto) 14.9 x10^3uL (1.8-7.7) Lymphocytes # (Auto) 0.7 x10^3/uL (1.0-4.8) Monocytes # (Auto) 0.8 x10^3/uL (0.0-1.1) Eosinophils # (Auto) 0.0 x10^3/uL (0.0-0.7) Basophils # (Auto) 0.1 x10^3/uL (0.0-0.2) Segmented Neutrophils % 94 % (35-66) Lymphocytes % 5 % (24-48) Monocytes % 1 % (0-10) Platelet Estimate Increased (ADEQUATE) Large Platelets Occ Polychromasia Slight Crenated Cell Present Urine Color Adriane Urine Clarity Clear Urine pH 5.0 Urine Specific [place] >=1.030 Urine Protein 30 mg/dL (NEG-TRACE) Urine Glucose (UA) 100 mg/dL (NEG) Urine Ketones (Stick) Trace mg/dL (NEG) Urine Blood Negative (NEG) Urine Nitrite Negative (NEG) Urine Bilirubin Small (NEG) Urine Urobilinogen Dipstick 0.2 mg/dL (0.2 mg/dL) Urine Leukocyte Esterase Negative (NEG) Urine RBC 0 /HPF (0-2) Urine WBC Occ /HPF (0-4) Urine Squamous Epithelial Cells Occ /LPF Urine Bacteria 0 /HPF (0-FEW) Urine Hyaline Casts Occasional /HPF Urine Mucus Mod /LPF Urine Opiates Screen Pos (NEG) Urine Methadone Screen Neg (NEG) Urine Barbiturates Neg (NEG) Urine Phencyclidine Screen Neg (NEG) Urine Amphetamine/Methamphetamine Neg (NEG) Urine Benzodiazepines Screen Neg (NEG) Urine Cocaine Screen Neg (NEG) Urine Cannabinoids Screen Neg (NEG) Urine Ethyl Alcohol Neg (NEG) Test 04/16/18 05:35 04/16/18 07:50 04/16/18 11:26 White Blood Count 18.2 x10^3/uL (4.0-11.0) Red Blood Count 4.08 x10^6/uL (4.30-5.70) Hemoglobin 13.2 g/dL (13.0-17.5) Hematocrit 40.1 % (39.0-53.0) Mean Corpuscular Volume 98 fL (79-100) Mean Corpuscular Hemoglobin 32 pg (25-35) Mean Corpuscular Hemoglobin Concent 33 g/dL (31-37) Red Cell Distribution Width 14.0 % (11.5-14.5) Platelet Count 438 x10^3/uL (140-400) Neutrophils (%) (Auto) 92 % (31-73) Lymphocytes (%) (Auto) 4 % (24-48) Monocytes (%) (Auto) 5 % (0-9) Eosinophils (%) (Auto) 0 % (0-3) Basophils (%) (Auto) 0 % (0-3) Neutrophils # (Auto) 16.7 x10^3uL (1.8-7.7) Lymphocytes # (Auto) 0.6 x10^3/uL (1.0-4.8) Monocytes # (Auto) 0.8 x10^3/uL (0.0-1.1) Eosinophils # (Auto) 0.0 x10^3/uL (0.0-0.7) Basophils # (Auto) 0.0 x10^3/uL (0.0-0.2) Sodium Level 138 mmol/L (136-145) Potassium Level 4.2 mmol/L (3.5-5.1) Chloride Level 102 mmol/L (98-107) Carbon Dioxide Level 21 mmol/L (21-32) Anion Gap 15 (6-14) Blood Urea Nitrogen 41 mg/dL (8-26) Creatinine 1.8 mg/dL (0.7-1.3) Estimated GFR (Cockcroft-Gault) 36.2 BUN/Creatinine Ratio 23 (6-20) Glucose Level 246 mg/dL (70-99) Calcium Level 8.6 mg/dL (8.5-10.1) Total Bilirubin 0.6 mg/dL (0.2-1.0) Aspartate Amino Transf (AST/SGOT) 20 U/L (15-37) Alanine Aminotransferase (ALT/SGPT) 33 U/L (16-63) Alkaline Phosphatase 126 U/L (46-116) Total Protein 7.0 g/dL (6.4-8.2) Albumin 3.4 g/dL (3.4-5.0) Albumin/Globulin Ratio 0.9 (1.0-1.7) Glucose (Fingerstick) 230 mg/dL (70-99) 216 mg/dL (70-99) VTE Prophylaxis Ordered VTE Prophylaxis Devices: No VTE Pharmacological Prophylaxi: Yes Assessment/Plan Assessment/Plan Intractable nausea and vomiting Diarrhea Acute renal failure secondary to vasomotor etiology Moderate to severe dehydration Sinus tachycardia seconadry to the above Leukocytosis and thrombocytosis most likely due to hemoconcentration, patient does not look toxic and his abdomen exam is benign. Diabetes mellitus type 2 Plan: will follow recommendations from consultant electronics awaiting for infectious etiology work up c diff pending and necessary before ordering binding products iv fluid resuscitation further recommendations based on clinical course. DVT prophylaxis: scd and ELIZABET Martinez MD Apr 16, 2018 16:19
[2018-04-16] MEDS: PROCHLORPERAZINE 10 MG/2 ML VIAL. IV PRN (17:42)
[2018-04-16 19:00] VITALS: BP 93/84
[2018-04-16] MEDS: ATORVASTATIN CALCIUM 10 MG TABLET. PO SCH (20:59)
[2018-04-16 23:00] VITALS: BP 114/55
[2018-04-17 03:00] VITALS: BP 90/51
[2018-04-17] MEDS: IV RINGERS,LACTATED 1000ML 1,000 ML IV SCH ×2 (06:30→17:48)
[2018-04-17 07:00] VITALS: BP 123/54
[2018-04-17] MEDS: INSULIN LISPRO 300 UNITS/3 ML INSULN.PEN. SQ SCH ×3 (08:00→17:00)
[2018-04-17] MEDS: LOSARTAN POTASSIUM 25 MG TABLET. PO SCH (09:17)
[2018-04-17] MEDS: FERROUS SULFATE 325 MG TABLET. PO SCH (09:18)
[2018-04-17] MEDS: ASPIRIN 325 MG TABLET PO SCH ×2 (09:18→17:47)
[2018-04-17] MEDS: CHOLECALCIFEROL (VITAMIN D3) 5,000 UNIT CAPSULE PO SCH (09:18)
[2018-04-17 10:03] LABS: BASO % 0 % (0-3); CREATININE 1.7 mg/dL (0.7-1.3); EOS % 0 % (0-3); GFR 38.7; HEMATOCRIT 34.5 % (39.0-53.0); HEMOGLOBIN 11.5 g/dL (13.0-17.5); LYMPH # 0.4 x10^3/uL (1.0-4.8); LYMPH % 8 % (24-48); MEAN CORPUSCULAR HEMOGLOBIN 32 pg (25-35); MEAN CORPUSCULAR HGB CONC 33 g/dL (31-37); MEAN CORPUSCULAR VOLUME 97 fL (79-100); MONO # 0.3 x10^3/uL (0.0-1.1); MONO % 6 % (0-9); NEUT # 4.4 x10^3uL (1.8-7.7); NEUT % 86 % (31-73); PLATELET COUNT 249 x10^3/uL (140-400); POTASSIUM 3.9 mmol/L (3.5-5.1); RED BLOOD COUNT 3.56 x10^6/uL (4.30-5.70); RED CELL DISTRIBUTION WIDTH 13.7 % (11.5-14.5); WHITE BLOOD COUNT 5.1 x10^3/uL (4.0-11.0)
--- NOTE | 2018-04-17 10:20 | PDOC ---
Subjective: Subjective: Doesn't know how diarrhea is because he hasn't had any. No n/v. Tolerating clears and would like more to eat. Feels weak but better than yesterday. Objective: Objective: D/w Dr. Moe - ?empiric vanco w/ h/o atbx course w/ recent knee replacement. Vital Signs: Vital Signs Date Time Temp Pulse Resp B/P (MAP) Pulse Ox O2 Delivery O2 Flow Rate FiO2 04/17/18 09:17 102 123/54 04/17/18 07:00 97.9 20 93 Room Air 97.9 Labs: Laboratory Tests Test 04/16/18 11:26 04/16/18 16:34 04/16/18 19:49 04/17/18 08:23 Glucose (Fingerstick) 216 mg/dL 174 mg/dL 157 mg/dL 125 mg/dL Test 04/17/18 09:20 White Blood Count 5.1 x10^3/uL Red Blood Count 3.56 x10^6/uL Hemoglobin 11.5 g/dL Hematocrit 34.5 % Mean Corpuscular Volume 97 fL Mean Corpuscular Hemoglobin 32 pg Mean Corpuscular Hemoglobin Concent 33 g/dL Red Cell Distribution Width 13.7 % Platelet Count 249 x10^3/uL Neutrophils (%) (Auto) 86 % Lymphocytes (%) (Auto) 8 % Monocytes (%) (Auto) 6 % Eosinophils (%) (Auto) 0 % Basophils (%) (Auto) 0 % Neutrophils # (Auto) 4.4 x10^3uL Lymphocytes # (Auto) 0.4 x10^3/uL Monocytes # (Auto) 0.3 x10^3/uL Eosinophils # (Auto) 0.0 x10^3/uL Basophils # (Auto) 0.0 x10^3/uL Sodium Level 135 mmol/L Potassium Level 3.9 mmol/L Chloride Level 102 mmol/L Carbon Dioxide Level 21 mmol/L Anion Gap 12 Blood Urea Nitrogen 41 mg/dL Creatinine 1.7 mg/dL Estimated GFR (Cockcroft-Gault) 38.7 Glucose Level 160 mg/dL Calcium Level 8.0 mg/dL PE: GEN: NAD LUNGS: CTAB HEART: mildly tachycardic - better ABD: NABS, S/ND/NT NEURO/PSYCH: A & O 3, much clamer today A/P: Vomiting - resolved Diarrhea - better? CKD, DM, hiatal hernia -- Symptoms improved - ADAT and change to PO PPI. Stool tests pending, await these. BELINDA LOVETT Apr 17, 2018 10:20
[2018-04-17 11:00] VITALS: BP 128/58
[2018-04-17] MEDS: PANTOPRAZOLE 40 MG TABLET.DR. PO SCH (11:59)
--- NOTE | 2018-04-17 12:52 | NUR ---
SW following. Discussed with RN, pt from home with girlfriend. RN advised pt is currently a 2 person assist. SW awaiting PT/OT recommendations.
--- NOTE | 2018-04-17 13:58 | PDOC ---
PROGRESS NOTES Chief Complaint Chief Complaint Intractable nausea and vomiting Diarrhea C diff? patient received 10 days of antibiotics after his knee repair more or less a month ago Acute renal failure secondary to vasomotor etiology Moderate to severe dehydration Sinus tachycardia seconadry to the above Leukocytosis and thrombocytosis most likely due to hemoconcentration, patient does not look toxic and his abdomen exam is benign. Diabetes mellitus type 2 Plan: start empiric po vanco awaiting for infectious etiology work up c diff pending iv fluid resuscitation further recommendations based on clinical course. DVT prophylaxis: scd and teds History of Present Illness History of Present Illness Patient clinically improved. Patient's discomfort has resolved his diarrhea has resolved since yesterday evening. Less nauseous and has not had further emesis. Patient also had a headache which was medicated in the symptoms greatly improved as well. No fever or chills the patient denies shortness of breath nor any other concerns. He had antibiotic therapy after his knee replacement about a month ago we'll start empiric C. difficile treatment. Discussed with family members at bedside Vitals Vitals Vital Signs Date Time Temp Pulse Resp B/P (MAP) Pulse Ox O2 Delivery O2 Flow Rate FiO2 04/17/18 11:00 97.8 101 20 128/58 (81) 94 Room Air 97.8 Labs LABS Laboratory Tests Test 04/16/18 16:34 04/16/18 19:49 04/17/18 08:23 04/17/18 09:20 Glucose (Fingerstick) 174 mg/dL (70-99) 157 mg/dL (70-99) 125 mg/dL (70-99) White Blood Count 5.1 x10^3/uL (4.0-11.0) Red Blood Count 3.56 x10^6/uL (4.30-5.70) Hemoglobin 11.5 g/dL (13.0-17.5) Hematocrit 34.5 % (39.0-53.0) Mean Corpuscular Volume 97 fL (79-100) Mean Corpuscular Hemoglobin 32 pg (25-35) Mean Corpuscular Hemoglobin Concent 33 g/dL (31-37) Red Cell Distribution Width 13.7 % (11.5-14.5) Platelet Count 249 x10^3/uL (140-400) Neutrophils (%) (Auto) 86 % (31-73) Lymphocytes (%) (Auto) 8 % (24-48) Monocytes (%) (Auto) 6 % (0-9) Eosinophils (%) (Auto) 0 % (0-3) Basophils (%) (Auto) 0 % (0-3) Neutrophils # (Auto) 4.4 x10^3uL (1.8-7.7) Lymphocytes # (Auto) 0.4 x10^3/uL (1.0-4.8) Monocytes # (Auto) 0.3 x10^3/uL (0.0-1.1) Eosinophils # (Auto) 0.0 x10^3/uL (0.0-0.7) Basophils # (Auto) 0.0 x10^3/uL (0.0-0.2) Sodium Level 135 mmol/L (136-145) Potassium Level 3.9 mmol/L (3.5-5.1) Chloride Level 102 mmol/L (98-107) Carbon Dioxide Level 21 mmol/L (21-32) Anion Gap 12 (6-14) Blood Urea Nitrogen 41 mg/dL (8-26) Creatinine 1.7 mg/dL (0.7-1.3) Estimated GFR (Cockcroft-Gault) 38.7 Glucose Level 160 mg/dL (70-99) Calcium Level 8.0 mg/dL (8.5-10.1) Test 04/17/18 11:04 Glucose (Fingerstick) 167 mg/dL (70-99) Review of Systems Review of Systems Pertinent as per history of present illness otherwise 14 point review of system is negative Comment Review of Relevant I have reviewed the following items beltran (where applicable) has been applied. Labs Laboratory Tests Test 04/15/18 20:00 04/15/18 20:22 04/15/18 20:35 04/15/18 21:05 Sodium Level 137 mmol/L (136-145) Potassium Level 4.8 mmol/L (3.5-5.1) Chloride Level 101 mmol/L (98-107) Carbon Dioxide Level 20 mmol/L (21-32) Anion Gap 16 (6-14) Blood Urea Nitrogen 43 mg/dL (8-26) Creatinine 1.7 mg/dL (0.7-1.3) Estimated GFR (Cockcroft-Gault) 38.7 BUN/Creatinine Ratio 25 (6-20) Glucose Level 224 mg/dL (70-99) Calcium Level 9.4 mg/dL (8.5-10.1) Total Bilirubin 0.7 mg/dL (0.2-1.0) Aspartate Amino Transf (AST/SGOT) 33 U/L (15-37) Alanine Aminotransferase (ALT/SGPT) 41 U/L (16-63) Alkaline Phosphatase 144 U/L (46-116) Total Protein 7.6 g/dL (6.4-8.2) Albumin 3.8 g/dL (3.4-5.0) Albumin/Globulin Ratio 1.0 (1.0-1.7) Lipase 44 U/L (73-393) Ethyl Alcohol Level < 10 mg/dL (0-10) Influenza Type A Antigen Negative (NEGATIVE) Influenza Type B Antigen Negative (NEGATIVE) White Blood Count 16.4 x10^3/uL (4.0-11.0) Red Blood Count 4.03 x10^6/uL (4.30-5.70) Hemoglobin 12.8 g/dL (13.0-17.5) Hematocrit 39.4 % (39.0-53.0) Mean Corpuscular Volume 98 fL (79-100) Mean Corpuscular Hemoglobin 32 pg (25-35) Mean Corpuscular Hemoglobin Concent 33 g/dL (31-37) Red Cell Distribution Width 14.2 % (11.5-14.5) Platelet Count 462 x10^3/uL (140-400) Neutrophils (%) (Auto) 90 % (31-73) Lymphocytes (%) (Auto) 4 % (24-48) Monocytes (%) (Auto) 5 % (0-9) Eosinophils (%) (Auto) 0 % (0-3) Basophils (%) (Auto) 1 % (0-3) Neutrophils # (Auto) 14.9 x10^3uL (1.8-7.7) Lymphocytes # (Auto) 0.7 x10^3/uL (1.0-4.8) Monocytes # (Auto) 0.8 x10^3/uL (0.0-1.1) Eosinophils # (Auto) 0.0 x10^3/uL (0.0-0.7) Basophils # (Auto) 0.1 x10^3/uL (0.0-0.2) Segmented Neutrophils % 94 % (35-66) Lymphocytes % 5 % (24-48) Monocytes % 1 % (0-10) Platelet Estimate Increased (ADEQUATE) Large Platelets Occ Polychromasia Slight Crenated Cell Present Urine Color Adriane Urine Clarity Clear Urine pH 5.0 Urine Specific Roosevelt >=1.030 Urine Protein 30 mg/dL (NEG-TRACE) Urine Glucose (UA) 100 mg/dL (NEG) Urine Ketones (Stick) Trace mg/dL (NEG) Urine Blood Negative (NEG) Urine Nitrite Negative (NEG) Urine Bilirubin Small (NEG) Urine Urobilinogen Dipstick 0.2 mg/dL (0.2 mg/dL) Urine Leukocyte Esterase Negative (NEG) Urine RBC 0 /HPF (0-2) Urine WBC Occ /HPF (0-4) Urine Squamous Epithelial Cells Occ /LPF Urine Bacteria 0 /HPF (0-FEW) Urine Hyaline Casts Occasional /HPF Urine Mucus Mod /LPF Urine Opiates Screen Pos (NEG) Urine Methadone Screen Neg (NEG) Urine Barbiturates Neg (NEG) Urine Phencyclidine Screen Neg (NEG) Urine Amphetamine/Methamphetamine Neg (NEG) Urine Benzodiazepines Screen Neg (NEG) Urine Cocaine Screen Neg (NEG) Urine Cannabinoids Screen Neg (NEG) Urine Ethyl Alcohol Neg (NEG) Test 04/16/18 05:35 04/16/18 07:50 04/16/18 11:26 04/16/18 16:34 White Blood Count 18.2 x10^3/uL (4.0-11.0) Red Blood Count 4.08 x10^6/uL (4.30-5.70) Hemoglobin 13.2 g/dL (13.0-17.5) Hematocrit 40.1 % (39.0-53.0) Mean Corpuscular Volume 98 fL (79-100) Mean Corpuscular Hemoglobin 32 pg (25-35) Mean Corpuscular Hemoglobin Concent 33 g/dL (31-37) Red Cell Distribution Width 14.0 % (11.5-14.5) Platelet Count 438 x10^3/uL (140-400) Neutrophils (%) (Auto) 92 % (31-73) Lymphocytes (%) (Auto) 4 % (24-48) Monocytes (%) (Auto) 5 % (0-9) Eosinophils (%) (Auto) 0 % (0-3) Basophils (%) (Auto) 0 % (0-3) Neutrophils # (Auto) 16.7 x10^3uL (1.8-7.7) Lymphocytes # (Auto) 0.6 x10^3/uL (1.0-4.8) Monocytes # (Auto) 0.8 x10^3/uL (0.0-1.1) Eosinophils # (Auto) 0.0 x10^3/uL (0.0-0.7) Basophils # (Auto) 0.0 x10^3/uL (0.0-0.2) Sodium Level 138 mmol/L (136-145) Potassium Level 4.2 mmol/L (3.5-5.1) Chloride Level 102 mmol/L (98-107) Carbon Dioxide Level 21 mmol/L (21-32) Anion Gap 15 (6-14) Blood Urea Nitrogen 41 mg/dL (8-26) Creatinine 1.8 mg/dL (0.7-1.3) Estimated GFR (Cockcroft-Gault) 36.2 BUN/Creatinine Ratio 23 (6-20) Glucose Level 246 mg/dL (70-99) Calcium Level 8.6 mg/dL (8.5-10.1) Total Bilirubin 0.6 mg/dL (0.2-1.0) Aspartate Amino Transf (AST/SGOT) 20 U/L (15-37) Alanine Aminotransferase (ALT/SGPT) 33 U/L (16-63) Alkaline Phosphatase 126 U/L (46-116) Total Protein 7.0 g/dL (6.4-8.2) Albumin 3.4 g/dL (3.4-5.0) Albumin/Globulin Ratio 0.9 (1.0-1.7) Glucose (Fingerstick) 230 mg/dL (70-99) 216 mg/dL (70-99) 174 mg/dL (70-99) Test 04/16/18 19:49 04/17/18 08:23 04/17/18 09:20 04/17/18 11:04 Glucose (Fingerstick) 157 mg/dL (70-99) 125 mg/dL (70-99) 167 mg/dL (70-99) White Blood Count 5.1 x10^3/uL (4.0-11.0) Red Blood Count 3.56 x10^6/uL (4.30-5.70) Hemoglobin 11.5 g/dL (13.0-17.5) Hematocrit 34.5 % (39.0-53.0) Mean Corpuscular Volume 97 fL (79-100) Mean Corpuscular Hemoglobin 32 pg (25-35) Mean Corpuscular Hemoglobin Concent 33 g/dL (31-37) Red Cell Distribution Width 13.7 % (11.5-14.5) Platelet Count 249 x10^3/uL (140-400) Neutrophils (%) (Auto) 86 % (31-73) Lymphocytes (%) (Auto) 8 % (24-48) Monocytes (%) (Auto) 6 % (0-9) Eosinophils (%) (Auto) 0 % (0-3) Basophils (%) (Auto) 0 % (0-3) Neutrophils # (Auto) 4.4 x10^3uL (1.8-7.7) Lymphocytes # (Auto) 0.4 x10^3/uL (1.0-4.8) Monocytes # (Auto) 0.3 x10^3/uL (0.0-1.1) Eosinophils # (Auto) 0.0 x10^3/uL (0.0-0.7) Basophils # (Auto) 0.0 x10^3/uL (0.0-0.2) Sodium Level 135 mmol/L (136-145) Potassium Level 3.9 mmol/L (3.5-5.1) Chloride Level 102 mmol/L (98-107) Carbon Dioxide Level 21 mmol/L (21-32) Anion Gap 12 (6-14) Blood Urea Nitrogen 41 mg/dL (8-26) Creatinine 1.7 mg/dL (0.7-1.3) Estimated GFR (Cockcroft-Gault) 38.7 Glucose Level 160 mg/dL (70-99) Calcium Level 8.0 mg/dL (8.5-10.1) Laboratory Tests Test 04/16/18 16:34 04/16/18 19:49 04/17/18 08:23 04/17/18 09:20 Glucose (Fingerstick) 174 mg/dL (70-99) 157 mg/dL (70-99) 125 mg/dL (70-99) White Blood Count 5.1 x10^3/uL (4.0-11.0) Red Blood Count 3.56 x10^6/uL (4.30-5.70) Hemoglobin 11.5 g/dL (13.0-17.5) Hematocrit 34.5 % (39.0-53.0) Mean Corpuscular Volume 97 fL (79-100) Mean Corpuscular Hemoglobin 32 pg (25-35) Mean Corpuscular Hemoglobin Concent 33 g/dL (31-37) Red Cell Distribution Width 13.7 % (11.5-14.5) Platelet Count 249 x10^3/uL (140-400) Neutrophils (%) (Auto) 86 % (31-73) Lymphocytes (%) (Auto) 8 % (24-48) Monocytes (%) (Auto) 6 % (0-9) Eosinophils (%) (Auto) 0 % (0-3) Basophils (%) (Auto) 0 % (0-3) Neutrophils # (Auto) 4.4 x10^3uL (1.8-7.7) Lymphocytes # (Auto) 0.4 x10^3/uL (1.0-4.8) Monocytes # (Auto) 0.3 x10^3/uL (0.0-1.1) Eosinophils # (Auto) 0.0 x10^3/uL (0.0-0.7) Basophils # (Auto) 0.0 x10^3/uL (0.0-0.2) Sodium Level 135 mmol/L (136-145) Potassium Level 3.9 mmol/L (3.5-5.1) Chloride Level 102 mmol/L (98-107) Carbon Dioxide Level 21 mmol/L (21-32) Anion Gap 12 (6-14) Blood Urea Nitrogen 41 mg/dL (8-26) Creatinine 1.7 mg/dL (0.7-1.3) Estimated GFR (Cockcroft-Gault) 38.7 Glucose Level 160 mg/dL (70-99) Calcium Level 8.0 mg/dL (8.5-10.1) Test 04/17/18 11:04 Glucose (Fingerstick) 167 mg/dL (70-99) Medications Current Medications Sodium Chloride 1,000 ml @ 1,000 mls/hr 1X ONCE IV Last administered on 20:13; Start 04/15/18 at 20:00; Stop 04/15/18 at 20:59; Status DC Ondansetron HCl (Zofran) 4 mg 1X ONCE IV Last administered on 04/15/18 20:15; Start 04/15/18 at 20:00; Stop 04/16/18 at 10:20; Status DC Famotidine (Pepcid Vial) 20 mg 1X ONCE IVP Last administered on 04/15/18 20:15 ; Start 04/15/18 at 20:00; Stop 04/15/18 at 20:03; Status DC Morphine Sulfate (Morphine Sulfate) 4 mg 1X ONCE IV Last administered on 20:16; Start 04/15/18 at 20:00; Stop 04/15/18 at 20:03; Status DC Ondansetron HCl (Zofran) 4 mg PRN Q8HRS PRN IV NAUSEA/VOMITING Last administered on 04/16/18at 10:31; Start 04/15/18 at 23:30; Stop 04/16/18 at 23:29; Status DC Morphine Sulfate (Morphine Sulfate) 4 mg PRN Q2HR PRN IV PAIN Last administered on 04/16/18 18:10; Start 04/15/18 at 23:30; Stop 04/16/18 at 23:29; Status DC Acetaminophen (Tylenol) 650 mg PRN Q4HRS PRN PO FEVER; Start 04/15/18 at 23:30; Stop 04/16/18 at 23:29; Status DC Insulin Human Lispro (HumaLOG) 0-5 UNITS TIDWMEALS SQ Last administered on 13:17; Start 04/16/18 at 08:00 Dextrose (Dextrose 50%-Water Syringe) 12.5 gm PRN Q15MIN PRN IV SEE COMMENTS; Start 04/15/18 at 23:30 Diazepam (Valium) 5 mg 1X ONCE PO Last administered on 04/16/18at 06:06; Start 04/15/18 at 23:45; Stop 04/15/18 at 23:46; Status DC Sodium Chloride 1,000 ml @ 125 mls/hr 1X ONCE IV Last administered on 00:07; Start 04/15/18 at 23:30; Stop 04/16/18 at 07:29; Status DC Zolpidem Tartrate (Ambien) 5 mg PRN QHS PRN PO INSOMNIA Last administered on 20:59; Start 04/16/18 at 00:00 Aspirin (Odalys Aspirin) 325 mg BIDWMEALS PO Last administered on 04/17/18 09:18 ; Start 04/16/18 at 08:00 Atorvastatin Calcium (Lipitor) 10 mg HS PO Last administered on 04/16/18 20:59 ; Start 04/16/18 at 21:00 Ferrous Sulfate (Feosol) 325 mg DAILY PO Last administered on 04/17/18 09:18; Start 04/16/18 at 09:00 Losartan Potassium (Cozaar) 25 mg DAILY PO Last administered on 04/17/18 09:17 ; Start 04/16/18 at 09:00 Vitamin D (Vitamin D3) 5,000 unit DAILY PO Last administered on 04/17/18 09:18 ; Start 04/16/18 at 09:00 Metformin HCl (Glucophage) 500 mg BIDWMEALS PO Last administered on 04/16/18 08 :23; Start 04/16/18 at 08:00; Stop 04/16/18 at 16:16; Status DC Pantoprazole Sodium (PROTONIX VIAL for IV PUSH) 40 mg BIDAC IVP Last administered on 04/16/18 17:41; Start 04/16/18 at 09:30; Stop 04/17/18 at 10:23; Status DC Ringer's Solution 1,000 ml @ 100 mls/hr Q10H IV Last administered on 04/16/18 20:59; Start 04/16/18 at 10:30 Prochlorperazine Edisylate (Compazine) 10 mg PRN Q6HRS PRN IV NAUSEA/VOMITING Last administered on 04/16/18 17:42; Start 04/16/18 at 10:30 Pantoprazole Sodium (Protonix) 40 mg DAILYAC PO Last administered on 04/17/18 11:59; Start 04/17/18 at 11:00 Active Scripts Active Reported Ferrous Sulfate 325 Mg Tablet 1 Tab PO DAILY Dana (Losartan Potassium) 25 Mg Tablet 25 Mg PO DAILY Vitamin D3 (Cholecalciferol (Vitamin D3)) 5,000 Unit Tablet 1 Tab PO DAILY Aspirin 325 Mg Tablet 1 Tab PO BID Atorvastatin Calcium 10 Mg Tablet 10 Mg PO DAILY Glipizide 5 Mg Tablet 5 Mg PO BID Metformin Hcl 500 Mg Tablet 500 Mg PO BIDWMEALS Vitals/I & O Vital Sign - Last 24 Hours 04/16/18 04/16/18 04/16/18 04/16/18 15:00 18:10 19:00 19:01 Temp 98.1 98.8 98.1 98.8 Pulse 105 103 Resp 18 18 B/P (MAP) 124/60 (81) 93/84 (87) Pulse Ox 96 96 94 O2 Delivery Room Air Room Air Room Air Room Air 04/16/18 04/16/18 04/17/18 04/17/18 19:58 23:00 03:00 07:00 Temp 98.1 98.0 97.9 98.1 98.0 97.9 Pulse 101 99 102 Resp 20 18 20 B/P (MAP) 114/55 (74) 90/51 (64) 123/54 (77) Pulse Ox 94 94 93 O2 Delivery Room Air Room Air Room Air Room Air 04/17/18 04/17/18 09:17 11:00 Temp 97.8 97.8 Pulse 102 101 Resp 20 B/P (MAP) 123/54 128/58 (81) Pulse Ox 94 O2 Delivery Room Air Intake and Output 04/16/18 04/16/18 04/17/18 14:59 22:59 06:59 Intake Total 1000 ml 320 ml Output Total 100 ml 200 ml Balance -100 ml 1000 ml 120 ml ELIZABET ARAGON MD Apr 17, 2018 13:58
[2018-04-17] MEDS ORDERED: VANCOMYCIN 125 MG/2.5 ML ORAL SOLUTION. PO SCH (14:00)
[2018-04-17] MEDS: PROCHLORPERAZINE 10 MG/2 ML VIAL. IV PRN (17:45)
[2018-04-17 19:00] VITALS: BP 107/49
[2018-04-17] MEDS: ATORVASTATIN CALCIUM 10 MG TABLET. PO SCH (21:58)
[2018-04-17] MEDS: ZOLPIDEM 5 MG TABLET. PO PRN (21:58)
[2018-04-17 22:40] VITALS: BP 120/46
[2018-04-18 02:49] VITALS: BP 121/53
[2018-04-18] MEDS: IV RINGERS,LACTATED 1000ML 1,000 ML IV SCH (05:06)
[2018-04-18 06:56] VITALS: BP 117/52
[2018-04-18] MEDS: PANTOPRAZOLE 40 MG TABLET.DR. PO SCH (09:15)
[2018-04-18] MEDS: ASPIRIN 325 MG TABLET PO SCH ×2 (09:16→16:59)
[2018-04-18] MEDS: CHOLECALCIFEROL (VITAMIN D3) 5,000 UNIT CAPSULE PO SCH (09:17)
[2018-04-18] MEDS: FERROUS SULFATE 325 MG TABLET. PO SCH (09:17)
[2018-04-18] MEDS: INSULIN LISPRO 300 UNITS/3 ML INSULN.PEN. SQ SCH ×3 (09:24→17:04)
[2018-04-18] MEDS: LOSARTAN POTASSIUM 25 MG TABLET. PO SCH (09:30)
[2018-04-18 10:38] VITALS: BP 140/65
--- NOTE | 2018-04-18 13:31 | PDOC ---
PROGRESS NOTES Chief Complaint Chief Complaint Intractable nausea and vomiting Diarrhea resolved, C diff ruled out Acute renal failure secondary to vasomotor etiology Moderate to severe dehydration Sinus tachycardia seconadry to the above Leukocytosis and thrombocytosis most likely due to hemoconcentration, patient does not look toxic and his abdomen exam is benign. Diabetes mellitus type 2 Plan: encourage more activity patient may shower discontinue iv fluid resuscitation further recommendations based on clinical course. DVT prophylaxis: scd and teds History of Present Illness History of Present Illness Patient clinically improved. Patient's discomfort has resolved his diarrhea has resolved since yesterday evening. Less nauseous and has not had further emesis. Patient also had a headache which was medicated in the symptoms greatly improved as well. No fever or chills the patient denies shortness of breath nor any other concerns. He had antibiotic therapy after his knee replacement about a month ago we'll start empiric C. difficile treatment. Discussed with family members at bedside Vitals Vitals Vital Signs Date Time Temp Pulse Resp B/P (MAP) Pulse Ox O2 Delivery O2 Flow Rate FiO2 04/18/18 10:38 97.6 74 20 140/65 (90) 94 Room Air 97.6 Labs LABS Laboratory Tests Test 04/17/18 16:17 04/17/18 20:08 04/18/18 08:04 04/18/18 11:34 Glucose (Fingerstick) 126 mg/dL (70-99) 172 mg/dL (70-99) 161 mg/dL (70-99) 163 mg/dL (70-99) Comment Review of Relevant I have reviewed the following items beltran (where applicable) has been applied. Labs Laboratory Tests Test 04/16/18 16:34 04/16/18 19:49 04/16/18 22:00 04/17/18 08:23 Glucose (Fingerstick) 174 mg/dL (70-99) 157 mg/dL (70-99) 125 mg/dL (70-99) Clostridium difficile Toxin B Gene Negative (Negative) Test 04/17/18 09:20 04/17/18 11:04 04/17/18 16:17 04/17/18 20:08 White Blood Count 5.1 x10^3/uL (4.0-11.0) Red Blood Count 3.56 x10^6/uL (4.30-5.70) Hemoglobin 11.5 g/dL (13.0-17.5) Hematocrit 34.5 % (39.0-53.0) Mean Corpuscular Volume 97 fL (79-100) Mean Corpuscular Hemoglobin 32 pg (25-35) Mean Corpuscular Hemoglobin Concent 33 g/dL (31-37) Red Cell Distribution Width 13.7 % (11.5-14.5) Platelet Count 249 x10^3/uL (140-400) Neutrophils (%) (Auto) 86 % (31-73) Lymphocytes (%) (Auto) 8 % (24-48) Monocytes (%) (Auto) 6 % (0-9) Eosinophils (%) (Auto) 0 % (0-3) Basophils (%) (Auto) 0 % (0-3) Neutrophils # (Auto) 4.4 x10^3uL (1.8-7.7) Lymphocytes # (Auto) 0.4 x10^3/uL (1.0-4.8) Monocytes # (Auto) 0.3 x10^3/uL (0.0-1.1) Eosinophils # (Auto) 0.0 x10^3/uL (0.0-0.7) Basophils # (Auto) 0.0 x10^3/uL (0.0-0.2) Sodium Level 135 mmol/L (136-145) Potassium Level 3.9 mmol/L (3.5-5.1) Chloride Level 102 mmol/L (98-107) Carbon Dioxide Level 21 mmol/L (21-32) Anion Gap 12 (6-14) Blood Urea Nitrogen 41 mg/dL (8-26) Creatinine 1.7 mg/dL (0.7-1.3) Estimated GFR (Cockcroft-Gault) 38.7 Glucose Level 160 mg/dL (70-99) Calcium Level 8.0 mg/dL (8.5-10.1) Glucose (Fingerstick) 167 mg/dL (70-99) 126 mg/dL (70-99) 172 mg/dL (70-99) Test 04/18/18 08:04 04/18/18 11:34 Glucose (Fingerstick) 161 mg/dL (70-99) 163 mg/dL (70-99) Laboratory Tests Test 04/17/18 16:17 04/17/18 20:08 04/18/18 08:04 04/18/18 11:34 Glucose (Fingerstick) 126 mg/dL (70-99) 172 mg/dL (70-99) 161 mg/dL (70-99) 163 mg/dL (70-99) Medications Current Medications Sodium Chloride 1,000 ml @ 1,000 mls/hr 1X ONCE IV Last administered on 20:13; Start 04/15/18 at 20:00; Stop 04/15/18 at 20:59; Status DC Ondansetron HCl (Zofran) 4 mg 1X ONCE IV Last administered on 04/15/18 20:15; Start 04/15/18 at 20:00; Stop 04/16/18 at 10:20; Status DC Famotidine (Pepcid Vial) 20 mg 1X ONCE IVP Last administered on 04/15/18at 20:15 ; Start 04/15/18 at 20:00; Stop 04/15/18 at 20:03; Status DC Morphine Sulfate (Morphine Sulfate) 4 mg 1X ONCE IV Last administered on 20:16; Start 04/15/18 at 20:00; Stop 04/15/18 at 20:03; Status DC Ondansetron HCl (Zofran) 4 mg PRN Q8HRS PRN IV NAUSEA/VOMITING Last administered on 04/16/18at 10:31; Start 04/15/18 at 23:30; Stop 04/16/18 at 23:29; Status DC Morphine Sulfate (Morphine Sulfate) 4 mg PRN Q2HR PRN IV PAIN Last administered on 04/16/18 18:10; Start 04/15/18 at 23:30; Stop 04/16/18 at 23:29; Status DC Acetaminophen (Tylenol) 650 mg PRN Q4HRS PRN PO FEVER; Start 04/15/18 at 23:30; Stop 04/16/18 at 23:29; Status DC Insulin Human Lispro (HumaLOG) 0-5 UNITS TIDWMEALS SQ Last administered on 12:51; Start 04/16/18 at 08:00 Dextrose (Dextrose 50%-Water Syringe) 12.5 gm PRN Q15MIN PRN IV SEE COMMENTS; Start 04/15/18 at 23:30 Diazepam (Valium) 5 mg 1X ONCE PO Last administered on 04/16/18 06:06; Start 04/15/18 at 23:45; Stop 04/15/18 at 23:46; Status DC Sodium Chloride 1,000 ml @ 125 mls/hr 1X ONCE IV Last administered on 00:07; Start 04/15/18 at 23:30; Stop 04/16/18 at 07:29; Status DC Zolpidem Tartrate (Ambien) 5 mg PRN QHS PRN PO INSOMNIA Last administered on 21:58; Start 04/16/18 at 00:00 Aspirin (Odalys Aspirin) 325 mg BIDWMEALS PO Last administered on 04/18/18 09:16 ; Start 04/16/18 at 08:00 Atorvastatin Calcium (Lipitor) 10 mg HS PO Last administered on 04/17/18 21:58 ; Start 04/16/18 at 21:00 Ferrous Sulfate (Feosol) 325 mg DAILY PO Last administered on 04/18/18 09:17; Start 04/16/18 at 09:00 Losartan Potassium (Cozaar) 25 mg DAILY PO Last administered on 04/18/18 09:30 ; Start 04/16/18 at 09:00 Vitamin D (Vitamin D3) 5,000 unit DAILY PO Last administered on 04/18/18 09:17 ; Start 04/16/18 at 09:00 Metformin HCl (Glucophage) 500 mg BIDWMEALS PO Last administered on 04/16/18 08 :23; Start 04/16/18 at 08:00; Stop 04/16/18 at 16:16; Status DC Pantoprazole Sodium (PROTONIX VIAL for IV PUSH) 40 mg BIDAC IVP Last administered on 04/16/18 17:41; Start 04/16/18 at 09:30; Stop 04/17/18 at 10:23; Status DC Ringer's Solution 1,000 ml @ 100 mls/hr Q10H IV Last administered on 04/18/18 05:06; Start 04/16/18 at 10:30 Prochlorperazine Edisylate (Compazine) 10 mg PRN Q6HRS PRN IV NAUSEA/VOMITING Last administered on 3/8/19at 17:45; Start 04/16/18 at 10:30 Pantoprazole Sodium (Protonix) 40 mg DAILYAC PO Last administered on 04/18/18at 09:15; Start 04/17/18 at 11:00 Vancomycin HCl (Vancomycin Oral Solution) 125 mg [id number] PO Last administered on 04/17/18at 16:02; Start 04/17/18 at 14:00; Stop 04/17/18 at 16:07; Status DC Active Scripts Active Reported Ferrous Sulfate 325 Mg Tablet 1 Tab PO DAILY Cozaar (Losartan Potassium) 25 Mg Tablet 25 Mg PO DAILY Vitamin D3 (Cholecalciferol (Vitamin D3)) 5,000 Unit Tablet 1 Tab PO DAILY Aspirin 325 Mg Tablet 1 Tab PO BID Atorvastatin Calcium 10 Mg Tablet 10 Mg PO DAILY Glipizide 5 Mg Tablet 5 Mg PO BID Metformin Hcl 500 Mg Tablet 500 Mg PO BIDWMEALS Vitals/I & O Vital Sign - Last 24 Hours 04/17/18 04/17/18 04/17/18 04/18/18 19:00 20:00 22:40 02:49 Temp 98.8 97.8 97.3 98.8 97.8 97.3 Pulse 95 94 82 Resp 19 B/P (MAP) 107/49 (68) 120/46 (70) 121/53 (75) Pulse Ox 96 94 95 O2 Delivery Room Air Room Air Room Air Room Air 04/18/18 04/18/18 04/18/18 06:56 09:30 10:38 Temp 97.6 97.6 Pulse 91 91 74 Resp 20 B/P (MAP) 117/52 (73) 117/52 140/65 (90) Pulse Ox 95 94 O2 Delivery Room Air Room Air Intake and Output 04/17/18 04/17/18 04/18/18 15:00 23:00 07:00 Intake Total 600 ml 250 ml 1240 ml Output Total 475 ml Balance 600 ml 250 ml 765 ml ELIZABET ARAGON MD Apr 18, 2018 13:31
[2018-04-18 15:19] VITALS: BP 118/57
[2018-04-18 19:00] VITALS: BP 139/71
[2018-04-18] MEDS: ATORVASTATIN CALCIUM 10 MG TABLET. PO SCH (21:51)
[2018-04-18] MEDS: ZOLPIDEM 5 MG TABLET. PO PRN (21:51)
[2018-04-18 22:56] VITALS: BP 132/65
[2018-04-19 03:00] VITALS: BP 129/68
[2018-04-19 07:00] VITALS: BP 121/62
[2018-04-19] MEDS: LOSARTAN POTASSIUM 25 MG TABLET. PO SCH (09:01)
[2018-04-19] MEDS: PANTOPRAZOLE 40 MG TABLET.DR. PO SCH (09:01)
[2018-04-19] MEDS: ASPIRIN 325 MG TABLET PO SCH (09:01)
[2018-04-19] MEDS: FERROUS SULFATE 325 MG TABLET. PO SCH (09:01)
[2018-04-19] MEDS: CHOLECALCIFEROL (VITAMIN D3) 5,000 UNIT CAPSULE PO SCH (09:02)
[2018-04-19] MEDS: INSULIN LISPRO 300 UNITS/3 ML INSULN.PEN. SQ SCH ×2 (09:12→12:59)
[2018-04-19 10:43] VITALS: BP 125/68
--- NOTE | 2018-04-19 12:36 | PDOC3 ---
Discharge Summary Visit Information Date of Admission: Apr 16, 2018 Date of Discharge: Apr 19, 2018 Admitting Diagnosis Comment: ntractable nausea and vomiting Diarrhea Acute renal failure secondary to vasomotor etiology Moderate to severe dehydration Sinus tachycardia seconadry to the above Leukocytosis and thrombocytosis most likely due to hemoconcentration, patient does not look toxic and his abdomen exam is benign. Diabetes mellitus type 2 Final Diagnosis Intractable nausea and vomiting viral syndrome most likely Diarrhea resolved, C diff ruled out Acute renal failure secondary to vasomotor etiology Moderate to severe dehydration Sinus tachycardia seconadry to the above Leukocytosis and thrombocytosis most likely due to hemoconcentration, patient does not look toxic and his abdomen exam is benign. Diabetes mellitus type 2 Brief Hospital Course Allergies Allergies Coded Allergies Type Severity Reaction Last Updated Verified No Known Drug Allergies 03/17/18 No Vital Signs Vital Signs Date Time Temp Pulse Resp B/P (MAP) Pulse Ox O2 Delivery O2 Flow Rate FiO2 04/19/18 10:43 97.9 78 18 125/68 (87) 95 Room Air 97.9 Lab Results Laboratory Tests Test 04/17/18 16:17 04/17/18 20:08 04/18/18 08:04 04/18/18 11:34 Glucose (Fingerstick) 126 mg/dL (70-99) 172 mg/dL (70-99) 161 mg/dL (70-99) 163 mg/dL (70-99) Test 04/18/18 16:37 04/18/18 20:42 04/19/18 07:31 Glucose (Fingerstick) 168 mg/dL (70-99) 185 mg/dL (70-99) 172 mg/dL (70-99) Laboratory Tests Test 04/18/18 16:37 04/18/18 20:42 04/19/18 07:31 Glucose (Fingerstick) 168 mg/dL (70-99) 185 mg/dL (70-99) 172 mg/dL (70-99) Brief Hospital Course Patient is an 82-year-old gentleman who comes today with a history of more or less 3 days onset of abdominal discomfort. The patient describes nausea and subsequently vomiting of gastric content. The patient has been unable to have oral intake due to his symptoms. The patient denies dietary transgressions no travels outside the area no sick contacts were reported. The patient denies having pets at home no history of herbal supplements or changes to his medications recently have been done. The patient subsequently also developed diarrhea which she describes as watery no foul-smelling no blood was reported in the stools. The patient denies recent history of antibiotic use he denies history of recent viral infections or cold-like symptoms. The patient is being admitted for further evaluation and treatment. At the time my evaluation patient is in moderate distress due to his symptoms and seems very lethargic as a consequence of his dehydration. Plan of care explained in detail reassurance has been provided concerns address to the best of my abilities Was seen in consultation by GI and infectious workup was sent. C. difficile was reported as negative, his symptoms resolve on his third hospital stay after keeping him nothing by mouth and fluid resuscitation was provided. Symptomatic relief of his symptoms was given as well, sinus tachycardia resolved within he was back to his baseline and able to ambulate well. He was seen in consultation by physical therapy recommends that he can establish his in the outpatient setting with a rehabilitation facility noted to have some strengthening exercises. I have encourage him to follow up with his primary care unit care physician GEN.: No apparent distress. Alert and oriented. HEENT: Head is normocephalic, atraumatic NECK: Supple. LUNGS: Clear to auscultation. HEART: RRR, S1, S2 present. Peripheral pulses intact ABDOMEN: Soft, nontender. Positive bowel sounds. EXTREMITIES: Without any cyanosis. NEUROLOGIC: Normal speech, normal tone PSYCHIATRIC: Normal affect, normal mood. SKIN: No ulcerations Discharge Information Condition at Discharge: Improved Follow Up: Weeks Disposition/Orders: D/C to Home Scheduled Aspirin (Aspirin) 325 Mg Tablet, 1 TAB PO BID, #90 Ref 3 (Reported) Entered as Reported by: ALLEN RAMIREZ on 02/21/171201 Last Action: Continued on 04/16/18 0001 by CLIFTON MARQUEZ Atorvastatin Calcium (Atorvastatin Calcium) 10 Mg Tablet, 10 MG PO DAILY for FOR CHOLESTEROL, #30 Ref 0 (Reported) Entered as Reported by: ALLEN RAMIREZ on 02/21/171201 Last Action: Continued on 04/16/182018 by CLIFTON MARQUEZ Cholecalciferol (Vitamin D3) (Vitamin D3) 5,000 Unit Tablet, 1 TAB PO DAILY, # 30 Ref 3 (Reported) Entered as Reported by: ALLEN RAMIREZ on 03/04/17 1455 Last Action: Converted on 04/16/182018 by CLIFTON MARQUEZ Ferrous Sulfate (Ferrous Sulfate) 325 Mg Tablet, 1 TAB PO DAILY for SUPPLEMENT , #30 Ref 3 (Reported) Entered as Reported by: CLIFTON MARQUEZ on 04/15/18 3329 Last Taken: UNKNOWN on Unknown Date & Time Last Action: Continued on 2018 by CLIFTON MARQUEZ Glipizide (Glipizide) 5 Mg Tablet, 5 MG PO BID for DM II , (Reported) Entered as Reported by: ALLEN RAMIREZ on 02/21/17 1202 Last Action: Edited on 04/16/182018 by CLIFTON MARQUEZ Losartan Potassium (Cozaar ) 25 Mg Tablet, 25 MG PO DAILY for HYPERTENSION, ( Reported) Entered as Reported by: PETAR MEDLEY on 02/23/18 1253 Last Action: Continued on 04/16/182018 by CLIFTON MARQUEZ Metformin Hcl (Metformin Hcl) 500 Mg Tablet, 500 MG PO BIDWMEALS for ANTI- DIABETIC, Ref 0 (Reported) Entered as Reported by: ALLEN RAMIREZ on 02/21/17 1202 Last Action: Converted on 04/16/182018 by ELIZABET PLUNKETT MD Apr 19, 2018 12:36
--- NOTE | 2018-04-19 13:05 | NUR ---
Patient IV discontinued and removed, without complications; well-tolerated. Patient packed belongings and ready to discharge to home by private vehicle with significant other.
== END 2018-04-19 14:45 | disposition home or self-care (01) | DRG 865 ==
LOC: ER 19:03 → 5 SOUTH 22:39
PROVIDERS: ADMIT Internal Medicine; ATTEND Internal Medicine
DX: B34.9 Viral infection, unspecified (principal); N17.0 Acute kidney failure with tubular necrosis; E86.0 Dehydration; D72.829 Elevated white blood cell count, unspecified; R00.0 Tachycardia, unspecified; K57.30 Diverticulosis of large intestine without perforation or abscess without bleeding; E11.65 Type 2 diabetes mellitus with hyperglycemia; E11.22 Type 2 diabetes mellitus with diabetic chronic kidney disease; E78.5 Hyperlipidemia, unspecified; Z96.653 Presence of artificial knee joint, bilateral; G47.33 Obstructive sleep apnea (adult) (pediatric); I12.9 Hypertensive chronic kidney disease with stage 1 through stage 4 chronic kidney disease, or unspecified chronic kidney disease; K44.9 Diaphragmatic hernia without obstruction or gangrene; N18.9 Chronic kidney disease, unspecified; Z79.82 Long term (current) use of aspirin; Z83.3 Family history of diabetes mellitus; Z86.010 Personal history of colon polyps; Z79.4 Long term (current) use of insulin
CPT/HCPCS: 36415; 74176; 80048; 80053; 80307; 81001; 82962; 83690; 85007; 85025; 87045; 87493; 87804; 96361; 96374; 96375; C9113; G0480; J0780; J1815; J2270; J2405; J3490; J7030; J7120; 97116; 97530; 97535; 99285-25

== ENCOUNTER → 2018-12-21 | Outpatient (CLI) | payer MEDICARE ==
[2018-09-29 08:21] VITALS: BP 142/84
[~2018-12-21] MED LIST changes: +AZEL137S3 NS; +MONT10TA10 PO; +TAMS0.4C97 PO
--- NOTE | 2018-12-21 16:16 | RAD ---
Examination: CT CHEST WO CONTRAST History: Pulmonary infiltrate Comparison/Correlation: 09/24/2018 CTA of the chest Findings: Axial images of the chest were obtained without contrast. Sagittal and coronal reformatted images were provided. Tracheomalacia is noted. Coronary arterial calcification is notable especially in the left anterior descending distribution. Calcified granulomas in both lung hemphill. Moderate-sized hiatal hernia is present. No focal consolidation. No dominant nodule. Nodule along the posterior margin of the left major fissure at the midthoracic level is stable and probably represents a perifissural lymph node. Minimal atelectasis at the costophrenic sulci noted. Minimal interstitial thickening in the lung hemphill is stable. No pleural or pericardial effusion. Gallbladder fossa is unremarkable. Descending duodenal diverticulum at the medial margin measuring up to 4.5 cm diameter is present. At the very distal duodenum, there is a 2 cm diameter diverticulum present. Multilevel degenerative disc space narrowing of the lower cervical and upper thoracic spine noted. Impression: No focal infiltrate. Resolution of previously evident right lateral midthoracic consolidation. Multiple punctate mostly calcified granulomas are stable. No suspicious pulmonary nodule or mass. No change in subpleural interstitial thickening primarily at the lung bases. Hiatal hernia. Duodenal diverticuli. PQRS Compliance Statement: One or more of the following individualized dose reduction techniques were utilized for this examination: 1. Automated exposure control 2. Adjustment of the mA and/or kV according to patient size 3. Use of iterative reconstruction technique Electronically signed by: Cesario Yeung MD (12/21/2018 4:12 PM) [facility]
== END | disposition home or self-care (01) ==
LOC: CT 14:49
PROVIDERS: ATTEND Internal Medicine Pulmonary Disease
DX: J98.11 Atelectasis (principal); J84.10 Pulmonary fibrosis, unspecified; I25.10 Atherosclerotic heart disease of native coronary artery without angina pectoris; K44.9 Diaphragmatic hernia without obstruction or gangrene; K57.10 Diverticulosis of small intestine without perforation or abscess without bleeding; M48.02 Spinal stenosis, cervical region
CPT/HCPCS: 71250

== ENCOUNTER → 2020-04-21 | Outpatient (CLI) | payer MEDICARE ==
[2018-09-29 08:21] VITALS: BP 142/84
[~2020-04-21] MED LIST changes: -MONT10TA10 PO; +MONT10TA20 PO
--- NOTE | 2020-04-21 18:08 | RAD ---
PQRS Compliance Statement: One or more of the following individualized dose reduction techniques were utilized for this examinat ion: 1. Automated exposure control 2. Adjustment of the mA and/or kV according to patient size 3. Use of iterative reconstruction technique CT CHEST HIGH RESOLUTION WO 04/21/2020 9:41 AM Indication: Pulmonary infiltrates COMPARISON: CT chest 12/21/2018 TECHNIQUE: Multiple axial CT images of the chest were obtained without intravenous contrast utilizing high-resolution protocol. Coronal and sagittal reformats are provided. FINDINGS: Mild subpleural interstitial changes are identified with lower lung zone predominance. There is mild traction bronchiectasis within the lower lobes. There is no significant honeycombing. Mild bronchial wall thickening compatible with nonspecific bronchitis. No pleural effusions, pulmonary vascular mike estion or pneumothorax. Scattered calcified granulomas are present. There is a 2 mm solid noncalcifie d pulmonary nodule along the minor fissure. There is a 3 mm groundglass nodule in the left upper lobe (series 7, image 27) presumed to be infectious/inflammatory given size. No significant groundglass c hanges are identified. No air-trapping. Heart size within normal limits. Moderate hiatal hernia. Thre e-vessel coronary artery vascular calcifications. Aortic valvular calcifications are present. Moderat e fatty atrophy of the pancreas. Duodenal diverticulum measures 3.8 x 4.6 cm. Advanced cervical spond ylosis is present. Moderate degenerative changes of the upper thoracic spine with partial osseous fus ion of T2-T3. There is a lucent lesion involving T2 measuring 13 mm which is not definitively visuali zed on prior examination from 12/21/2018. Further characterization with MR thoracic spine could be of benefit. IMPRESSION: 1. Mild subpleural interstitial changes with traction bronchiectasis in the lower lobes could represe nt early interstitial lung disease. However, findings do not correspond to a specific subtype of inte rstitial lung disease. No definite groundglass changes or honeycombing. No significant air-trapping i s identified. 2. Bronchial wall thickening compatible with nonspecific bronchitis. 3. Moderate hiatal hernia. 4. Duodenal diverticulum measures 3.8 x 4.16. 5. T2 thoracic spine lucent lesion measures 13 mm, not definitively seen on prior imaging. Further ev aluation with MR thoracic spine without contrast could be of benefit. Findings most favor an osseous hemangioma. Electronically signed by: Meera Carter MD (04/21/2020 6:06 PM) [facility]
== END ==
LOC: CT 09:38
PROVIDERS: ATTEND Internal Medicine Pulmonary Disease
DX: K44.9 Diaphragmatic hernia without obstruction or gangrene (principal); K57.10 Diverticulosis of small intestine without perforation or abscess without bleeding; R91.8 Other nonspecific abnormal finding of lung field
CPT/HCPCS: 71250

== ENCOUNTER → 2020-05-30 | Outpatient (CLI) | payer MEDICARE ==
[2018-09-29 08:21] VITALS: BP 142/84
--- NOTE | 2020-05-30 11:10 | KCIC ---
MRI THORACIC SPINE WO INDICATION: ABNORMAL FINDING ON CT. Some burning across the posterior belt line. Abnormal CT TECHNIQUE: Multi-planar multi-weighted magnetic resonance imaging of the thoracic spine was performed without contrast using the standard protocol. COMPARISON: CT chest 04/21/2020. FINDINGS: 3 mm anterolisthesis at T1-T2 due to severe facet arthropathy. No acute fracture. Vertebral body heig hts are maintained without compression deformity. Moderate multilevel degenerative disc desiccation a nd disc height loss. Previously seen lucent lesion at T2 has imaging features favoring intraosseous h emangioma. Degenerative endplate edema at T1-T2. The spinal cord is normal in signal intensity. The conus medullaris terminates at a normal level. No soft tissue abnormality within the visualized chest or abdomen. The visualized thoracic aorta is n ormal caliber. Partially imaged cervical spondylosis with moderate to severe spinal canal stenosis at C2-3 and C3-4. T1-T2: Disc bulge with superiorly migrating disc extrusion which extends 5 mm below the disc space. M oderate spinal canal stenosis. Moderate to severe neuroforaminal narrowing. T2-T12: Few tiny disc bulges without significant spinal canal stenosis. Mild neural foraminal narrowi ng at T9-10 and T10-11 IMPRESSION: 1. Previously seen lucent lesion at T2 has imaging features favoring intraosseous hemangioma. 2. Moderate thoracic spondylosis, worst at T1-T2 with moderate spinal canal stenosis and moderate to severe neural foraminal narrowing. 3. Partially imaged cervical spondylosis with moderate to severe spinal canal stenosis at C2-3 and C3 -4. This could be further characterized with MRI, as clinically warranted Electronically signed by: Kade Major MD (05/30/2020 11:07 AM) [id number]
== END ==
LOC: KCIC MRI 08:20
PROVIDERS: ATTEND Family Medicine
DX: M47.813 Spondylosis without myelopathy or radiculopathy, cervicothoracic region (principal); M48.03 Spinal stenosis, cervicothoracic region
CPT/HCPCS: 72146

== ENCOUNTER 2021-02-09 17:36 | Emergency (ER) | payer MEDICARE ==
[~2021-02-09] VITALS: Ht 180.3 cm; Wt 127.8 kg
[~2021-02-09 17:36] MED LIST changes: -LEVO500T8 PO; +LEVO500T9 PO; +MONT-38 PO; -MONT10TA20 PO
[2021-02-09 21:32] LABS: INFLUENZA A PATIENT NEGATIVE (NEGATIVE); INFLUENZA B PATIENT NEGATIVE (NEGATIVE)
[2021-02-09 21:36] LABS: BASO # 0.1 x10^3/uL (0.0-0.2); BASO % 1 % (0-3); EOS # 0.2 x10^3/uL (0.0-0.7); EOS % 3 % (0-3); HEMATOCRIT 44.3 % (39.0-53.0); HEMOGLOBIN 15.3 g/dL (13.0-17.5); LYMPH # 0.9 x10^3/uL (1.0-4.8); LYMPH % 11 % (24-48); MEAN CORPUSCULAR HEMOGLOBIN 33 pg (25-35); MEAN CORPUSCULAR HGB CONC 35 g/dL (31-37); MEAN CORPUSCULAR VOLUME 95 fL (79-100); MONO # 0.5 x10^3/uL (0.0-1.1); MONO % 6 % (0-9); NEUT % 80 % (31-73); PLATELET COUNT 218 x10^3/uL (140-400); RED BLOOD COUNT 4.64 x10^6/uL (4.30-5.70); RED CELL DISTRIBUTION WIDTH 13.4 % (11.5-14.5); WHITE BLOOD COUNT 8.8 x10^3/uL (4.0-11.0)
[2021-02-09 21:43] LABS: CALCIUM 8.7 mg/dL (8.5-10.1); CREATININE 1.4 mg/dL (0.7-1.3); GFR 48.1
[2021-02-09 21:49] LABS: ALBUMIN 3.4 g/dL (3.4-5.0); TOTAL BILIRUBIN 0.6 mg/dL (0.2-1.0); TOTAL PROTEIN 6.9 g/dL (6.4-8.2)
[2021-02-09] MEDS ORDERED: BENZ200C47 PO (23:09)
--- NOTE | 2021-02-09 23:09 | PHYS DOC ---
Past Medical History Past Medical History: Diabetes-Type II, High Cholesterol, Hypertension, Pneumonia Additional Past Medical Histor: CARPAL TUNNEL, pulmonary fibroisis (SHANE SPICER APRN) Past Surgical History: Knee Replacement, Other Additional Past Surgical Histo: shoulder, knee, (SHANE SPICER APRN) Smoking Status: Never Smoker Alcohol Use: None Drug Use: None (SHANE SPICER APRN) General Adult EDM: Chief Complaint: SHORTNESS OF BREATH HPI: HPI: Patient is an 85-year-old male that presents today with cough and shortness of breath. Patient states he has chronic cough and shortness of air due to environmental exposure causing permanent scarring to his lungs. Patient states that he sees his Sisillo on a regular basis he last saw him in December 2020 for his normal maintenance, he normally takes albuterol inhaler twice daily, Nasacort, and Zithromax on a regular basis. Patient states that over the last couple days he has had increased cough, no fever or chills. (SHANE SPICER FIXING CARPENTER) Review of Systems: Review of Systems: Constitutional: Denies fever or chills. [] Eyes: Denies change in visual acuity. [] HENT: Denies nasal congestion or sore throat. [] Respiratory: cough or shortness of breath. [] Cardiovascular: Denies chest pain or edema. [] GI: Denies abdominal pain, nausea, vomiting, bloody stools or diarrhea. [] : Denies dysuria. [] Musculoskeletal: Denies back pain or joint pain. [] Integument: Denies rash. [] Neurologic: Denies headache, focal weakness or sensory changes. [] Endocrine: Denies polyuria or polydipsia. [] Lymphatic: Denies swollen glands. [] Psychiatric: Denies depression or anxiety. [] (SHANE SPICER FIXING CARPENTER) Heart Score: C/O Chest Pain: N/A Risk Factors: Risk Factors: DM, Current or recent (<one month) smoker, HTN, HLP, family history of CAD, obesity. Risk Scores: Score 0 - 3: 2.5% MACE over next 6 weeks - Discharge Home Score 4 - 6: 20.3% MACE over next 6 weeks - Admit for Clinical Observation Score 7 - 10: 72.7% MACE over next 6 weeks - Early Invasive Strategies (SHANE SPICER FIXING CARPENTER) Allergies: Allergies: Allergies Coded Allergies Type Severity Reaction Last Updated Verified No Known Drug Allergies 03/17/18 No (SHANE SPICER APRN) Physical Exam: PE: Constitutional: Well developed, well nourished, no acute distress, non-toxic appearance. [] HENT: Normocephalic, atraumatic, bilateral external ears normal, oropharynx moist, no oral exudates, nose normal. [] Eyes: PERRLA, EOMI, conjunctiva normal, no discharge. [] Neck: Normal range of motion, no tenderness, supple, no stridor. [] Cardiovascular:Heart rate regular rhythm, no murmur [] Lungs & Thorax: Bilateral breath sounds diminished bilaterally, upper airway wheezes noted audibly. Abdomen: Bowel sounds normal, soft, no tenderness, no masses, no pulsatile masses. [] Skin: Warm, dry, no erythema, no rash. [] Back: No tenderness, no CVA tenderness. [] Extremities: No tenderness, no cyanosis, no clubbing, ROM intact, no edema. [] Neurologic: Alert and oriented X 3, normal motor function, normal sensory function, no focal deficits noted. [] Psychologic: Affect normal, judgement normal, mood normal. [] (SHANE SPICER FIXING CARPENTER) Current Patient Data: Labs: Laboratory Tests Test 02/09/21 21:24 White Blood Count 8.8 x10^3/uL (4.0-11.0) Red Blood Count 4.64 x10^6/uL (4.30-5.70) Hemoglobin 15.3 g/dL (13.0-17.5) Hematocrit 44.3 % (39.0-53.0) Mean Corpuscular Volume 95 fL (79-100) Mean Corpuscular Hemoglobin 33 pg (25-35) Mean Corpuscular Hemoglobin Concent 35 g/dL (31-37) Red Cell Distribution Width 13.4 % (11.5-14.5) Platelet Count 218 x10^3/uL (140-400) Neutrophils (%) (Auto) 80 % (31-73) H Lymphocytes (%) (Auto) 11 % (24-48) L Monocytes (%) (Auto) 6 % (0-9) Eosinophils (%) (Auto) 3 % (0-3) Basophils (%) (Auto) 1 % (0-3) Neutrophils # (Auto) 7.0 x10^3/uL (1.8-7.7) Lymphocytes # (Auto) 0.9 x10^3/uL (1.0-4.8) L Monocytes # (Auto) 0.5 x10^3/uL (0.0-1.1) Eosinophils # (Auto) 0.2 x10^3/uL (0.0-0.7) Basophils # (Auto) 0.1 x10^3/uL (0.0-0.2) Sodium Level 139 mmol/L (136-145) Potassium Level 5.0 mmol/L (3.5-5.1) Chloride Level 103 mmol/L (98-107) Carbon Dioxide Level 26 mmol/L (21-32) Anion Gap 10 (6-14) Blood Urea Nitrogen 22 mg/dL (8-26) Creatinine 1.4 mg/dL (0.7-1.3) H Estimated GFR (Cockcroft-Gault) 48.1 BUN/Creatinine Ratio 16 (6-20) Glucose Level 108 mg/dL (70-99) H Calcium Level 8.7 mg/dL (8.5-10.1) Total Bilirubin 0.6 mg/dL (0.2-1.0) Aspartate Amino Transferase (AST) 17 U/L (15-37) Alanine Aminotransferase (ALT) 28 U/L (16-63) Alkaline Phosphatase 90 U/L (46-116) Total Protein 6.9 g/dL (6.4-8.2) Albumin 3.4 g/dL (3.4-5.0) Albumin/Globulin Ratio 1.0 (1.0-1.7) Influenza Type A Antigen Negative (NEGATIVE) Influenza Type B Antigen Negative (NEGATIVE) SARS-CoV-2 Antigen (Rapid) Negative (NEGATIVE) Laboratory Tests 02/09/21 21:24 Laboratory Tests 02/09/21 21:24 Vital Signs: Vital Signs Date Time Temp Pulse Resp B/P (MAP) Pulse Ox O2 Delivery O2 Flow Rate FiO2 02/09/21 21:45 122 18 176/108 (130) 96 Room Air 02/09/21 18:42 98.3 98.3 (SHANE SPICER APRN) EKG: EKG: [] (SHANE SPICER FIXING CARPENTER) Radiology/Procedures: Radiology/Procedures: REASON: Cough PROCEDURE: CHEST AP ONLY EXAMINATION: Chest radiograph. VIEWS: 1 COMPARISON: 04/21/2020 INDICATION:85 years, Male, cough. FINDINGS: Normal cardiomediastinal silhouette. Calcified granuloma in the right midlung. Bibasilar subsegmental atelectasis and/or scarring. No focal consolidation. No pleural effusion or pneumothorax. No acute osseous process. Stable small hiatal hernia. IMPRESSION: No acute cardiopulmonary process. Electronically signed by: Dorothy Pham MD (02/10/2021 8:23 AM) [facility] [] (SHANE SPICER FIXING CARPENTER) Course & Med Decision Making: Course & Med Decision Making Pertinent Labs and Imaging studies reviewed. (See chart for details) 2256 reassessment of patient shows patient resting comfortably in his bed with no increased work of breathing noted, oxygen saturations are 94%. Talk with patient about lab results and radiological results finding nothing acute at this time, patient is requesting to go home to manage this on an outpatient basis he does request something for the coughing. (SHANE SPICER FIXING CARPENTER) Dragon Disclaimer: Dragon Disclaimer: This electronic medical record was generated, in whole or in part, using a voice recognition dictation system. (SHANE SPICER FIXING CARPENTER) Departure Departure Impression: Primary Impression: Cough in adult Disposition: 01 HOME / SELF CARE / HOMELESS Condition: STABLE Referrals: FRED CHAHAL MD (PCP) JOSE LUIS MUNOZ MD Patient Instructions: Cough, Adult Additional Instructions: Tessalon Perles take 1 tablet 3 times daily as needed for cough Cool-mist humidifier at the bedside while sleeping You may use your albuterol inhaler every 4 hours 2 puffs as needed for shortness of breath. Continue antibiotics you are currently taking at home Call Dr. Stoll's office next week or your primary care physician for further management of your cough. Scripts Benzonatate (BENZONATATE) 200 Mg Capsule 1 CAP PO PRN TID PRN for cough for 7 Days, #21 CAP 0 Refills Prov: SHANE SPICER FIXING CARPENTER 02/09/21 Attending Signature Attending Signature I have reviewed the PA/DIRECTOR OF CONSULTING SERVICES's note and plan of care. I was available for consultation as needed during the patient's visit in the emergency department. I agree with the clinical impression, plan, and disposition. (MEME NGUYEN DO) NAYANDAKOTASHANE FIXING CARPENTER Feb 09, 2021 23:09 MEME NGUYEN DO Feb 11, 2021 18:58
[2021-02-09 23:30] VITALS: BP 191/105
[2021-02-09] MEDS ORDERED: DEXAMETHASONE SOD PHOS 20 MG/5 ML VIAL. IV ONE (23:30)
--- NOTE | 2021-02-10 08:26 | RAD ---
EXAMINATION: Chest radiograph. VIEWS: 1 COMPARISON: 04/21/2020 INDICATION:85 years, Male, cough. FINDINGS: Normal cardiomediastinal silhouette. Calcified granuloma in the right midlung. Bibasilar subsegmental atelectasis and/or scarring. No focal consolidation. No pleural effusion or pneumothorax. No acute o sseous process. Stable small hiatal hernia. IMPRESSION: No acute cardiopulmonary process. Electronically signed by: Dorothy Pham MD (02/10/2021 8:23 AM) [facility]
--- NOTE | 2021-02-12 16:28 | NUR ---
IP: Informed pt of negative covid test. pt verbalized understanding.
== END 2021-02-09 23:49 | disposition home or self-care (01) ==
LOC: ER 17:36
DX: R05.9 Cough, unspecified (principal); R06.02 Shortness of breath; Z20.822 Contact with and (suspected) exposure to COVID-19; E11.9 Type 2 diabetes mellitus without complications; E78.00 Pure hypercholesterolemia, unspecified; I10 Essential (primary) hypertension
CPT/HCPCS: 36415; 71045; 80053; 85025; 87426; 87804; 96374; 99285; J1100; U0003; U0005

== ENCOUNTER → 2021-04-20 | Outpatient (CLI) | payer MEDICARE ==
[~2021-04-20] MED LIST changes: +BENZ200C47 PO
[2021-04-20 08:34] LABS: BASO # 0.1 x10^3/uL (0.0-0.2); BASO % 1 % (0-3); EOS # 0.3 x10^3/uL (0.0-0.7); EOS % 4 % (0-3); HEMATOCRIT 43.5 % (39.0-53.0); HEMOGLOBIN 14.5 g/dL (13.0-17.5); LYMPH # 2.2 x10^3/uL (1.0-4.8); LYMPH % 28 % (24-48); MEAN CORPUSCULAR HEMOGLOBIN 32 pg (25-35); MEAN CORPUSCULAR HGB CONC 33 g/dL (31-37); MEAN CORPUSCULAR VOLUME 95 fL (79-100); MONO # 0.6 x10^3/uL (0.0-1.1); MONO % 7 % (0-9); NEUT # 4.8 x10^3/uL (1.8-7.7); NEUT % 60 % (31-73); PLATELET COUNT 260 x10^3/uL (140-400); RED BLOOD COUNT 4.58 x10^6/uL (4.30-5.70); RED CELL DISTRIBUTION WIDTH 14.3 % (11.5-14.5)
--- NOTE | 2021-04-20 09:02 | RAD ---
Exam Date: 04/20/2021 8:[address] THORAX WO Indication: Shortness of breath TECHNIQUE: CT scan of the chest was performed without intravenous contrast. One or more of the fo [facility] dose reduction techniques were utilized: *Automated exposure control (AEC) *Adjustment of mA and/or kV according to patient size *Use of iterative reconstruction technique *CT scan done according to ALARA, or ALARA/IMAGE GENTLY COMPARISON: CT from April 21, 2020. MRI from May 30, 2020. FINDINGS: Again seen are slightly prominent interstitial markings, predominantly at the periphery of the lung b ases. Bibasilar mild bronchiectasis is again seen. These findings are similar when compared to the prior exam. No honeycombing or significant groundglass opacities are seen. The central airways are patent. There is no focal consolidation, pleural effusion or pneumothorax. Calcified granulomas are seen in the lungs. The visualized thyroid gland is within normal limits. No lymphadenopathy is seen. Aorta is normal in caliber with atherosclerotic calcifications. The heart is normal in size without pericardial effusion. Coronary artery calcifications are present . Images of the upper abdomen demonstrate a moderate hiatal hernia. Degenerative changes are seen in t he spine. Lucent lesion at T2 was evaluated on MRI from May 2020 and described as an osseous heman gioma. IMPRESSION: Slightly prominent interstitial markings are again seen, predominantly at the periphery of the lung b ases, which could represent early interstitial lung disease. Mild bibasilar bronchiectasis is again seen. No honeycombing or significant groundglass opacities are seen. The overall findings are simil ar when compared to the prior exam. Moderate hiatal hernia again seen. Electronically signed by: Truman Mims MD (04/20/2021 8:59 AM) [id number]
--- NOTE | 2021-04-20 11:26 | RAD ---
MR#: [id number] Date of Study: 04/20/2021 Ordering Physician: SHAHEEN GAMEZ Referring Physician: PARMJIT DUFFY Tech: APPROVED REPORT Test Type: Exercise Stress Nurse/Tech: Sera Bennett RN Test Indications: Dyspnea Cardiac History: Hypertension, Diabetes Medications: See Electronic Medical Record Medical History: See Electronic Medical Record Resting ECG: SR Resting Heart Rate: 83 bpm Resting Blood Pressure: 159/77mmHg Pretest Chest Pain: No chest pain Nurse/Tech Notes S1,S2 and lungs slightly diminished in the bases. Stress Symptoms Dyspnea,Fatigue POST EXERCISE Reason for Termination: Reached target heart rate Target HR: Yes Max HR: 196 bpm 173% of Maximum Predicted HR: 113 bpm Exercise duration: 1:53 min:sec, 1 Stage Exercise capacity: 4.6METs Max Blood Pressure: 185/66mmHg Blood Pressure response to exercise: Normal blood pressure response during stress. Heart Rate response to exercise: WNL Chest Pain: No. Arrhythmia: No. ST Change: No. Conclusion 1. Normal baseline EKG 2. Essentially nondiagnostic stress test due to extremely poor exercise capacity with the patient onl y exercising to stage one of the Eduard protocol. 3. Limited stress EKG does not reveal any acute ischemia Recommendations Consider alternative stress testing such as a chemical myocardial perfusion study Signed by : Lamont Jacobson, Electronically Approved : 04/20/2021 11:26:33
--- NOTE | 2021-04-22 17:04 | CARD ---
MR#: [id number] Date of Study: 04/20/2021 Ordering Physician: SHAHEEN GAMEZ, Referring Physician: SHAHEEN GAMEZ, Tech: Parish Matthews [facility] APPROVED REPORT EXAM: Two-dimensional and M-mode echocardiogram with Doppler and color Doppler. Other Information Quality : FairHR: 78bpm Rhythm : NSRTechnically limited study due to body habitus. INDICATION Dyspnea RISK FACTORS Obesity 2D DIMENSIONS Left Atrium(2D)5.1 (1.6-4.0cm)IVSd1.4 (0.7-1.1cm) Aortic Root(2D)3.8 (2.0-3.7cm)LVDd3.5 (3.9-5.9cm) LVOT Diameter2.0 (1.8-2.4cm)PWd1.3 (0.7-1.1cm) LA Aiwmhb38 (18-58mL)LVDs2.1 (2.5-4.0cm) FS (%) 39.2 %SV36.5 ml Aortic Valve AoV Peak Dante.203.3cm/sAoV VTI39.8cm AO Peak GR.16.5mmHgLVOT Peak Dante.100.7cm/s LVOT VTI 18.64cmAO Mean GR.10mmHg BROOKE (VMAX)1.37vc5KZO (VTI)1.54cm2 Mitral Valve MV E Hieazqmc35.8cm/sMV DECEL QCLI404vx MV A Xbqifbxh016.5cm/sMV E Mean Gr.4mmHg MV TVX58ouY/A Ratio0.6 MVA (PHT)2.73cm2 TDI E/Lateral E'18.9E/Medial E'16.5 Pulmonary Valve PV Peak Wvbxbjqn549.0cm/sPV Peak Grad.6mmHg Tricuspid Valve TR P. Fsgxnzmt394oo/sTR Peak Gr.27mmHg Pulmonary Vein S1 Vangbjfa18.7cm/sD2 Jgyemflf40.4cm/s LEFT VENTRICLE The left ventricle is normal size. There is mild to moderate concentric left ventricular hypertrophy. The left ventricular systolic function is normal and the ejection fraction is within normal range. L V ejection fraction of 55 to 60%. There is normal LV segmental wall motion. Tissue Doppler imaging re veals abnormal left ventricular diastolic dysfunction. There is no ventricular septal defect visualiz ed. There is no left ventricular aneurysm. There is no mass noted in the left ventricle. RIGHT VENTRICLE The right ventricle is normal size. There is normal right ventricular wall thickness. The right ventr icular systolic function is normal. ATRIA The left atrium is mild to moderately dilated. The right atrium size is normal. The interatrial septu m is intact with no evidence for an atrial septal defect or patent foramen ovale as noted on 2-D or D oppler imaging. AORTIC VALVE The aortic valve is moderately thickened but opens well. Doppler and Color Flow revealed no significa nt aortic regurgitation. There is no significant aortic valvular stenosis. Calculated aortic valve ar ea is 1.6 cm2 with maximum pressure gradient of 17 mmHg and mean pressure gradient of 9 mmHg. There i s no aortic valvular vegetation. MITRAL VALVE The mitral valve is calcified but opens well. There is no evidence of mitral valve prolapse. There is no mitral valve stenosis. Doppler and Color Flow revealed trace mitral valve regurgitation. TRICUSPID VALVE The tricuspid valve is normal in structure and function. Doppler and Color Flow revealed trace to mil d tricuspid regurgitation. The PA pressure was estimated at 38 mmHg. There is no tricuspid valve prol apse or vegetation. There is no tricuspid valve stenosis. PULMONIC VALVE The pulmonary valve is normal in structure and function. Doppler and Color Flow revealed no pulmonic valvular regurgitation. There is no pulmonic valvular stenosis. GREAT VESSELS The aortic root is normal in size. The ascending aorta is normal in size. The pulmonary artery is nor mal. The IVC is normal in size and collapses >50% with inspiration. PERICARDIAL EFFUSION There is no pleural effusion. There is no evidence of significant pericardial effusion. Critical Notification Critical Value: No <Conclusion> The left ventricle is normal size. The left ventricular systolic function is normal and the ejection fraction is within normal range. LV ejection fraction of 55 to 60%. There is normal LV segmental wall motion. There is mild to moderate concentric left ventricular hypertrophy. Doppler and Color Flow revealed no significant aortic regurgitation. There is no significant aortic valvular stenosis. Calculated aortic valve area is 1.6 cm2 with maximum pressure gradient of 17 mmHg and mean pressure g radient of 9 mmHg. Doppler and Color Flow revealed trace mitral valve regurgitation. Doppler and Color Flow revealed trace to mild tricuspid regurgitation. The PA pressure was estimated at 38 mmHg. Signed by : Tristian Wharton MD Electronically Approved : 04/22/2021 17:04:10
== END ==
LOC: CT 07:41
PROVIDERS: ATTEND Internal Medicine Pulmonary Disease
DX: J47.9 Bronchiectasis, uncomplicated (principal); J84.10 Pulmonary fibrosis, unspecified; I36.1 Nonrheumatic tricuspid (valve) insufficiency; K44.9 Diaphragmatic hernia without obstruction or gangrene; I70.0 Atherosclerosis of aorta; I25.10 Atherosclerotic heart disease of native coronary artery without angina pectoris; I51.7 Cardiomegaly
CPT/HCPCS: 36415; 71250; 84443; 85025; 93017; 93306; C8929